=== PATIENT | female | born 1935 | race Caucasian/White ===

== ENCOUNTER → 2016-09-16 | Day surgery (SDC) | payer MEDICARE ==
[~2016-09-16] MED LIST: 1-ME1LIQ PO; ALBU1AER INH; ASPI81 PO; BENA20 PO; CALCTAB70 PO; CRAN500C2 PO; FENO1TAB76 PO; FIORIC PO; LACTATED RINGER'S 1000 ML INJ 1,000 ML ONE; LASI20TA PO; LEVA500T PO; LIPI40TA PO; LOPR50TA12 PO; LORTA5 PO; METR-1 PO; ONDA1TAB16 PO; PRIL20CA PO; PROPOFOL 500 MG/50 ML BTL IV ONE; SYNT125T PO; UMEC1INH INH; Z.0.OXYGENDME NC
--- NOTE | 2016-09-16 10:08 | GIPROC ---
[facility] [address] [address], [address] COLONOSCOPY PROCEDURE REPORT EXAM DATE: 09/16/2016 PATIENT NAME: Sylvia Momin MR #: [id number] BIRTHDATE: 1935 ENDOSCOPIST: Sahara Donahue MD ORDER #: [id number] TELEVISION SERVICER: Steffanie Kennedy RN STATUS: outpatient INDICATIONS: The patient is a 81 yr old female here for a colonoscopy due to high risk patient with personal history of colonic polyps PROCEDURE PERFORMED: Colonoscopy with polypectomy MEDICATIONS: None and Per Anesthesia. PREP QUALITY: good ESTIMATED BLOOD LOSS: None CONSENT: The patient understands the risks and benefits of the procedure and understands that these risks include, but are not limited to: sedation, allergic reaction, infection, perforation and/or bleeding. Alternative means of evaluation and treatment include, among others: physical exam, x-rays, and/or surgical intervention. The patient elects to proceed with this endoscopic procedure. medical equipment was checked for proper function. Hand hygiene and appropriate measures for infection prevention was taken. After the risks, benefits and alternatives of the procedure were thoroughly explained, Informed consent was verified, confirmed and timeout was successfully executed by the treatment team. A digital exam revealed no abnormalities of the rectum The [id number] ([id number]) endoscope was introduced through the anus and advanced to the surgical anastomosis. The instrument was then slowly withdrawn as the colon was fully examined. COLON FINDINGS: 2 small polyp 5 mm each in the transverse colon removed by snare. 1 flat 8 mm poylp in the transverse colon removed by snare. Moderate diverticulosis was noted in the sigmoid colon. The colon mucosa was otherwise normal. Retroflexed views revealed no abnormalities The scope was then completely withdrawn from the patient and the procedure terminated. ADVERSE EVENTS: There were no complications. IMPRESSIONS: 1. 2 small polyp 5 mm each in the transverse colon removed by snare 2. 1 flat 8 mm poylp in the transverse colon removed by snare 3. Moderate diverticulosis was noted in the sigmoid colon 4. The colon mucosa was otherwise normal 5. Retroflexed views revealed no abnormalities 6. Revealed no abnormalities of the rectum RECOMMENDATIONS: 1. Await biopsy results. Biopsy results will not be ready for 7-10 days. If you don't hear from us in two weeks, call our office for results. 2. Yearly hemoccult 3. High fiber diet RECALL: Return 2 years Colonoscopy Sahara Donahue MD eSigned: Sahara Donahue MD 09/16/2016 10:08 AM cc: Brock West M.D. PATIENT NAME: Liliane Sylvia Suzy MR#: [id number]
== END | disposition home or self-care (01) ==
LOC: ESDC 08:11
PROVIDERS: ATTEND Hospitalist
DX: Z12.11 Encounter for screening for malignant neoplasm of colon (principal); Z86.010 Personal history of colon polyps; D12.3 Benign neoplasm of transverse colon; K57.90 Diverticulosis of intestine, part unspecified, without perforation or abscess without bleeding
CPT/HCPCS: 00810; 45385; 88305; J7120

== ENCOUNTER 2016-12-07 13:22 | Emergency (ER) | payer MEDICARE ==
[~2016-12-07] VITALS: Ht 157.5 cm; Wt 82.1 kg
[~2016-12-07 13:22] MED LIST changes: -LACTATED RINGER'S 1000 ML INJ 1,000 ML ONE; -PROPOFOL 500 MG/50 ML BTL IV ONE
[2016-12-07 13:31] VITALS: BP 170/77; PULSE 99; RESP 18; TEMP 97.8; O2SAT 97
[2016-12-07] MEDS ORDERED: ATOR40TA16 PO (13:52)
[2016-12-07] MEDS ORDERED: BUTA1CAP PO (13:52)
[2016-12-07] MEDS ORDERED: CHOL1CAP PO (13:52)
[2016-12-07] MEDS ORDERED: BENA20TA PO (13:52)
[2016-12-07] MEDS ORDERED: PANT40TA3 PO (13:52)
[2016-12-07] MEDS ORDERED: HYDR-3800 PO (13:52)
[2016-12-07] MEDS ORDERED: SYSTSOL EACH EYE (13:52)
[2016-12-07] MEDS ORDERED: METO50TA PO (13:52)
[2016-12-07] MEDS ORDERED: CALCTAB19 PO (13:52)
[2016-12-07] MEDS ORDERED: FURO20TA PO (13:52)
[2016-12-07] MEDS ORDERED: ALPR0.25 PO (13:52)
[2016-12-07] MEDS ORDERED: CRANCAP2 PO (13:52)
[2016-12-07] MEDS ORDERED: ASPI81CH37 CHEW (13:52)
[2016-12-07] MEDS ORDERED: LEVO.125 PO (13:52)
[2016-12-07] MEDS ORDERED: VENTAER INH (13:52)
[2016-12-07] MEDS ORDERED: TYLE325T PO (13:52)
--- NOTE | 2016-12-07 13:53 | PD ---
HPI Chief Complaint: Hypertension Time Seen by Provider: 13:37 Travel History International Travel<30 days: No Contact w/Intl Traveler<30days: No Traveled to known affect area: No History of Present Illness HPI This 81-year-old female complaining of high blood pressure. She has a long history of hypertension which has been refractory to treatment. He is currently on metoprolol 50 twice a day and benazepril 20 mg twice a day. She went to see Dr. Bonilla last Friday in her blood pressure was elevated. He started on hydralazine 50 mg 3 times a day. Since she's taken that her blood pressure has been quite erratic. She says that this morning it was low and at times it is high. She was 80/50 this morning and was feeling a bit lightheaded. She does have multiple medical issues. She has a history of COPD and is on continuous home oxygen. He has a history of lung cancer that is under control at this time she does take Lasix PFSH Past Medical History Hx Anticoagulant Therapy: Yes (asa 81mg) Arthritis: Yes Asthma: No Anxiety: Yes Cancer: Yes (RIGHT LUNG) Cardiovascular Problems: Yes High Cholesterol: Yes (hyperlipedemis sinus stefano) COPD: Yes Diabetes: No Diminished Hearing: No Endocrine: Yes Gastrointestinal Disorders: Yes (REFLUX, GI BLEEDING) GERD: Yes Genitourinary: Yes (FREQUENCY, INCONTINENCE) Hepatitis: No Hiatal Hernia: No Hypertension: Yes Immune Disorder: No Implanted Vascular Access Dvce: Yes Musculoskeletal: Yes (hx of multiple neck and back surgeries) Neurologic: Yes (TENSION HEADACHES) Psychiatric: Yes (ANXIETY) Reproductive: No Respiratory: Yes Sleep Apnea: Yes (UNDIAGNOSED) Thyroid Disease: Yes (HYPOTHYROIDISM) Influenza Vaccination: No ?: Not Past Surgical History Abdominal Surgery: Yes (appendectomy, PARTIAL COLON REMOVAL) AICD: No Appendectomy: Yes Body Medical Devices: RODS LOWER BACK Cholecystectomy: Yes Ear Surgery: No Endocrine Surgery: No Eye Surgery: Yes (bethany eye cataract removal) Gynecologic Surgery: Yes (hysterectomy) Hysterectomy: Yes Joint Replacement: Yes (RIGHT TOTAL KNEE) Oral Surgery: No Pacemaker: No Thoracic Surgery: Yes (right upper lobectomy) Other Surgery: Yes (RIGHT SHOULDER REBUILT) Social History Alcohol Use: No Tobacco Use: No Substance Use: No Allergies-Medications (Allergen,Severity, Reaction): Coded Allergies: Influenza Virus Vaccines (Unverified Allergy, Severe, ANAPHLAXIS, 12/07/16) SHOCK acetaminophen (Unverified Allergy, Severe, headache, 12/07/16) diazepam (Unverified Allergy, Severe, NAUSEA/VOMITING, 12/07/16) HEADACHES hydrocodone (Unverified Allergy, Severe, headache, 12/07/16) meperidine (Unverified Allergy, Severe, VOMITING, 12/07/16) morphine (Unverified Allergy, Severe, Anaphylaxis, 12/07/16) budesonide (Unverified Adverse Reaction, Intermediate, Pt states having having trouble with throat closing after tx, 12/07/16) Gave 25mg benedryl iv and continued to monitor pt clonidine (Unverified Adverse Reaction, Unknown, Dizziness, 12/07/16) Reported Meds & Prescriptions Reported Meds & Active Scripts Active Reported Ventolin Hfa 18 GM Inh (Albuterol Sulfate) 90 Mcg/Act Aer 2 Puff INH Q4H PRN Tylenol (Acetaminophen) 325 Mg Tab 650 Mg PO Q6H PRN Systane Opth Drops (Polyethylene Glycol-Propylene Glycol Opth Drp) 0.4-0.3% Soln 1-2 Drop EACH EYE PRN PRN Synthroid (Levothyroxine Sodium) 125 Mcg Tab 125 Mcg PO DAILY Pantoprazole (Pantoprazole Sodium) 40 Mg Tab 40 Mg PO DAILY Metoprolol Tartrate 50 Mg Tab 50 Mg PO BID Furosemide 20 Mg Tab 20 Mg PO BID Fioricet (Tyuxlsfmgb-Bnzgszrncdvaa-Vnioreup) 50-300-40 Mg Cap 2 Cap PO Q4H PRN Fenofibric Acid Dr (Choline Fenofibrate DR) 45 mg Capdr 45 Mg PO DAILY Cranberry Urinary Comfort (Vitamins C & E) 1 Cap 500 Cap PO DAILY Calcium 600+D 200 (Calcium Carbonate-Vitamin D) 600-200 Mg-Unit Tab 1 Tab PO BID Benazepril (Benazepril HCl) 20 Mg Tab 20 Mg PO BID Atorvastatin (Atorvastatin Calcium) 40 Mg Tab 40 Mg PO HS Aspirin Low Dose (Aspirin) 81 Mg Chew 81 Mg CHEW DAILY Alprazolam 0.25 Mg Tab 0.25 Mg PO DAILY NEB PRN Hydralazine HCl 50 Mg Tablet 50 Mg PO TID Review of Systems General / Constitutional: No: Fever Eyes: No: Diploplia, Blurred Vision HENT: Positive: Headaches Cardiovascular: No: Chest Pain or Discomfort, Palpitations Respiratory: Positive: Cough, Shortness of Breath Gastrointestinal: No: Nausea, Vomiting Genitourinary: No: Urgency, Frequency Musculoskeletal: No: Myalgias, Arthralgias Skin: No Rash, No Itching Hematologic/Lymphatic: No: Easy Bruising Physical Exam Narrative GENERAL: Chronically ill female on supplemental oxygen SKIN: Focused skin assessment warm/dry. HEAD: Atraumatic. Normocephalic. EYES: Pupils equal and round. No scleral icterus. No injection or drainage. ENT: No nasal bleeding or discharge. Mucous membranes pink and moist. NECK: Trachea midline. No JVD. CARDIOVASCULAR: Regular rate and rhythm. No murmur appreciated. RESPIRATORY: No accessory muscle use. Scattered rhonchi bilaterally. Breath sounds equal bilaterally. GASTROINTESTINAL: Abdomen soft, non-tender, nondistended. Hepatic and splenic margins not palpable. MUSCULOSKELETAL: No obvious deformities. No clubbing. No cyanosis. Trace edema. NEUROLOGICAL: Awake and alert. No obvious cranial nerve deficits. Motor grossly within normal limits. Normal speech. PSYCHIATRIC: Appropriate mood and affect; insight and judgment normal. Data Data Last Documented VS Vital Signs Date Time Temp Pulse Resp B/P (MAP) Pulse Ox O2 Delivery O2 Flow Rate FiO2 12/07/16 14:53 160/85 (110) 12/07/16 13:42 98 Room Air 2.00 12/07/16 13:31 97.8 99 18 Orders Orders Complete Blood Count With Diff (12/07/16 13:48) Basic Metabolic Panel (Bmp) (12/07/16 13:48) Labs Laboratory Tests Test 12/07/16 14:00 White Blood Count 11.5 TH/MM3 Red Blood Count 4.99 MIL/MM3 Hemoglobin 14.8 GM/DL Hematocrit 45.1 % Mean Corpuscular Volume 90.4 FL Mean Corpuscular Hemoglobin 29.6 PG Mean Corpuscular Hemoglobin Concent 32.7 % Red Cell Distribution Width 15.0 % Platelet Count 319 TH/MM3 Mean Platelet Volume 8.6 FL Neutrophils (%) (Auto) 74.1 % Lymphocytes (%) (Auto) 16.7 % Monocytes (%) (Auto) 5.0 % Eosinophils (%) (Auto) 1.4 % Basophils (%) (Auto) 2.8 % Neutrophils # (Auto) 8.5 TH/MM3 Lymphocytes # (Auto) 1.9 TH/MM3 Monocytes # (Auto) 0.6 TH/MM3 Eosinophils # (Auto) 0.2 TH/MM3 Basophils # (Auto) 0.3 TH/MM3 CBC Comment DIFF FINAL Differential Comment Blood Urea Nitrogen 27 MG/DL Creatinine 0.81 MG/DL Random Glucose 106 MG/DL Calcium Level 9.2 MG/DL Sodium Level 138 MEQ/L Potassium Level 4.0 MEQ/L Chloride Level 100 MEQ/L Carbon Dioxide Level 30.8 MEQ/L Anion Gap 7 MEQ/L Estimat Glomerular Filtration Rate 68 ML/MIN MDM Medical Decision Making Medical Screen Exam Complete: Yes Emergency Medical Condition: Yes Medical Record Reviewed: Yes Differential Diagnosis Differential includes hypertension, electrolyte imbalance Narrative Course Blood work was checked and is going. The patient had a low blood pressure this morning after the hydralazine and I will cut her dose back from 50-25. She does tend to go up and I'm been no change her from 50 3 times daily to 25 4 times daily Diagnosis Primary Impression: Hypertension Scripts Hydralazine HCl (Hydralazine HCl) 25 Mg Tablet 25 MG PO QID for Blood Pressure Management for 30 Days, #120 TAB 0 Refills Prov: Valeriy Mejia MD 12/07/16 Disposition: 01 DISCHARGE HOME Condition: Stable Valeriy Mejia MD Dec 07, 2016 13:53
[2016-12-07 14:09] LABS: AUTOMATED NEUTROPHIL # 8.5 TH/MM3 (1.8-7.7); BASOPHIL # 0.3 TH/MM3 (0-0.2); BASOPHIL % 2.8 % (0.0-2.0); EOSINOPHIL # 0.2 TH/MM3 (0-0.4); EOSINOPHIL % 1.4 % (0.0-4.0); HEMATOCRIT 45.1 % (35.0-46.0); HEMO FLAGS DIFF FINAL; LYMPH % 16.7 % (9.0-44.0); LYMPHOCYTE # 1.9 TH/MM3 (1.0-4.8); MEAN CELL VOLUME 90.4 FL (80.0-100.0); MEAN CORPUSCULAR HEMOGLOBIN 29.6 PG (27.0-34.0); MEAN CORPUSCULAR HGB CONC 32.7 % (32.0-36.0); NEUT % 74.1 % (16.0-70.0); PLATELET COUNT 319 TH/MM3 (150-450); RED BLOOD COUNT 4.99 MIL/MM3 (4.00-5.30); WHITE BLOOD COUNT 11.5 TH/MM3 (4.0-11.0)
[2016-12-07 14:20] LABS: BICARBONATE 30.8 MEQ/L (21.0-32.0)
[2016-12-07 14:53] VITALS: BP 160/85
[2016-12-07] MEDS ORDERED: HYDR-3799 PO (15:12)
== END 2016-12-07 15:20 | disposition home or self-care (01) ==
LOC: PHED 13:22
DX: I10 Essential (primary) hypertension (principal); J44.9 Chronic obstructive pulmonary disease, unspecified; E78.00 Pure hypercholesterolemia, unspecified; E03.9 Hypothyroidism, unspecified; K21.9 Gastro-esophageal reflux disease without esophagitis; Z79.82 Long term (current) use of aspirin; Z99.81 Dependence on supplemental oxygen
CPT/HCPCS: 80048; 85025; 99283

== ENCOUNTER 2016-12-11 15:52 | Emergency (ER) | payer MEDICARE ==
[~2016-12-11] VITALS: Ht 162.6 cm; Wt 80.0 kg
[~2016-12-11 15:52] MED LIST changes: -1-ME1LIQ PO; -ALBU1AER INH; +ALPR0.25 PO; -ASPI81 PO; +ASPI81CH37 CHEW; +ATOR40TA16 PO; -BENA20 PO; +BENA20TA PO; +BUTA1CAP PO; +CALCTAB19 PO; -CALCTAB70 PO; +CHOL1CAP PO; -CRAN500C2 PO; +CRANCAP2 PO; -FENO1TAB76 PO; -FIORIC PO; +FURO20TA PO; +HYDR-3799 PO; +HYDR-3800 PO; -LASI20TA PO; -LEVA500T PO; +LEVO.125 PO; -LIPI40TA PO; -LOPR50TA12 PO; -LORTA5 PO; +METO50TA PO; -METR-1 PO; -ONDA1TAB16 PO; +PANT40TA3 PO; -PRIL20CA PO; -SYNT125T PO; +SYSTSOL EACH EYE; +TYLE325T PO; -UMEC1INH INH; +VENTAER INH; -Z.0.OXYGENDME NC
[2016-12-11 16:04] VITALS: BP 221/90; PULSE 90; RESP 22; TEMP 98.3; O2SAT 97
[2016-12-11 16:20] VITALS: BP 195/88; PULSE 92; RESP 16; O2SAT 98
[2016-12-11] MEDS ORDERED: FAMOTIDINE 20 MG TAB PO ONE (16:30)
[2016-12-11] MEDS ORDERED: UMEC1INH INH (16:31)
[2016-12-11] MEDS ORDERED: MIRA3350 PO (16:32)
[2016-12-11 17:04] VITALS: BP 199/130; PULSE 100; RESP 18; TEMP 98; O2SAT 98
--- NOTE | 2016-12-11 17:13 | PD ---
HPI Chief Complaint: Allergic/Adverse Reaction Time Seen by Provider: 16:23 Travel History International Travel<30 days: No Contact w/Intl Traveler<30days: No Traveled to known affect area: No History of Present Illness HPI Patient comes in complaining of allergic reaction that occurred shortly prior to arrival. Patient reports approximately about an hour after taking a dose of Lexapro she began feeling her throat was closing she's having difficulty breathing and felt very pruritic all over. Patient received 125 Solu-Medrol and 50 mg of Benadryl IV by EMS that alleviated her symptoms. Patient denies any other known new allergen exposures. States she's never take Lexapro prior to today. Patient denies any symptoms currently. Denies any chest pain, shortness of breath, fevers, headache,numbness or tingling anywhere, abdominal pain, or pruritus currently. PFSH Past Medical History Hx Anticoagulant Therapy: Yes (asa 81mg) Arthritis: Yes Asthma: No Anxiety: Yes Cancer: Yes (RIGHT LUNG) Cardiovascular Problems: Yes High Cholesterol: Yes (hyperlipedemis sinus stefano) COPD: Yes Diabetes: No Diminished Hearing: No Endocrine: Yes Gastrointestinal Disorders: Yes (REFLUX, GI BLEEDING) GERD: Yes Genitourinary: Yes (FREQUENCY, INCONTINENCE) Hepatitis: No Hiatal Hernia: No Hypertension: Yes Immune Disorder: No Implanted Vascular Access Dvce: Yes Musculoskeletal: Yes (hx of multiple neck and back surgeries) Neurologic: Yes (TENSION HEADACHES) Psychiatric: Yes (ANXIETY) Reproductive: No Respiratory: Yes Sleep Apnea: Yes (UNDIAGNOSED) Thyroid Disease: Yes (HYPOTHYROIDISM) Tetanus Vaccination: Never Vaccinated ?: Not Past Surgical History Abdominal Surgery: Yes (appendectomy, PARTIAL COLON REMOVAL) AICD: No Appendectomy: Yes Body Medical Devices: RODS LOWER BACK Cholecystectomy: Yes Ear Surgery: No Endocrine Surgery: No Eye Surgery: Yes (bethany eye cataract removal) Gynecologic Surgery: Yes (hysterectomy) Hysterectomy: Yes Joint Replacement: Yes (RIGHT TOTAL KNEE) Oral Surgery: No Pacemaker: No Thoracic Surgery: Yes (right upper lobectomy) Other Surgery: Yes (RIGHT SHOULDER REBUILT) Social History Alcohol Use: No Tobacco Use: No Substance Use: No Allergies-Medications (Allergen,Severity, Reaction): Coded Allergies: Influenza Virus Vaccines (Verified Allergy, Severe, ANAPHLAXIS, 12/11/16) SHOCK acetaminophen (Verified Allergy, Severe, headache, 12/11/16) amlodipine (Verified Allergy, Severe, Anaphylaxis, 12/11/16) codeine (Verified Allergy, Severe, Shortness of Breath, 12/11/16) diazepam (Verified Allergy, Severe, NAUSEA/VOMITING, 12/11/16) HEADACHES escitalopram (Verified Allergy, Severe, Anaphylaxis, 12/11/16) hydrocodone (Verified Allergy, Severe, headache, 12/11/16) meperidine (Verified Allergy, Severe, VOMITING, 12/11/16) morphine (Verified Allergy, Severe, Anaphylaxis, 12/11/16) gabapentin (Verified Allergy, Intermediate, Shortness of Breath, 12/11/16) budesonide (Verified Adverse Reaction, Intermediate, Pt states having having trouble with throat closing after tx, 12/11/16) Gave 25mg benedryl iv and continued to monitor pt clonidine (Verified Adverse Reaction, Unknown, Dizziness, 12/11/16) Reported Meds & Prescriptions Reported Meds & Active Scripts Active Pepcid (Famotidine) 20 Mg Tab 10 Mg PO BID 5 Days Prednisone 20 Mg Tab 20 Mg PO BID 3 Days Reported Miralax Powder (Polyethylene Glycol 3350 Powder) 17 Gm Powd 17 Gm PO DAILY Mix and dissolve one measuring cap-ful (17 grams) in water or juice. Incruse Ellipta Inh (Umeclidinium Peculiar Inh) 0.0625 Mg/Act Inh 62.5 Mcg INH DAILY Ventolin Hfa 18 GM Inh (Albuterol Sulfate) 90 Mcg/Act Aer 2 Puff INH Q4H PRN Tylenol (Acetaminophen) 325 Mg Tab 650 Mg PO Q6H PRN Systane Opth Drops (Polyethylene Glycol-Propylene Glycol Opth Drp) 0.4-0.3% Soln 1-2 Drop EACH EYE PRN PRN Synthroid (Levothyroxine Sodium) 125 Mcg Tab 125 Mcg PO DAILY Pantoprazole (Pantoprazole Sodium) 40 Mg Tab 40 Mg PO DAILY Metoprolol Tartrate 50 Mg Tab 50 Mg PO BID Furosemide 20 Mg Tab 20 Mg PO BID Fioricet (Dqzmwtkofd-Gjpmsbnpjsdbl-Jzraltxa) 50-300-40 Mg Cap 2 Cap PO Q4H PRN Fenofibric Acid Dr (Choline Fenofibrate DR) 45 mg Capdr 45 Mg PO DAILY Cranberry Urinary Comfort (Vitamins C & E) 1 Cap 500 Cap PO DAILY Calcium 600+D 200 (Calcium Carbonate-Vitamin D) 600-200 Mg-Unit Tab 1 Tab PO BID Benazepril (Benazepril HCl) 20 Mg Tab 20 Mg PO BID Atorvastatin (Atorvastatin Calcium) 40 Mg Tab 40 Mg PO HS Aspirin Low Dose (Aspirin) 81 Mg Chew 81 Mg CHEW DAILY Review of Systems Except as stated in HPI: all other systems reviewed are Neg Physical Exam Narrative GENERAL: Well-developed, overly nourished, in no acute distress, and non-ill appearing. SKIN: Focused skin assessment warm and dry. No hives or urticaria noted. No rashes noted. HEAD: Atraumatic. Normocephalic. EYES: Pupils equal and round. EOMI. No scleral icterus. No injection or drainage. ENT: No nasal bleeding or discharge. Mucous membranes pink and moist. No angioedema noted lips or tongue. NECK: Trachea midline. No stridor. Supple. No nuclear rigidity. CARDIOVASCULAR: Regular rate and rhythm. No murmur appreciated. RESPIRATORY: No accessory muscle use. No respiratory distress. Clear to auscultation. Breath sounds equal bilaterally. Patient speaking in full sentences easily. There is no stridor. MUSCULOSKELETAL: No obvious deformities. No clubbing. No cyanosis. No edema. Full range of motion. NEUROLOGICAL: Awake and alert. No obvious cranial nerve deficits. Motor grossly within normal limits. Normal speech. PSYCHIATRIC: Appropriate mood and affect; insight and judgment normal. Data Data Last Documented VS Vital Signs Date Time Temp Pulse Resp B/P (MAP) Pulse Ox O2 Delivery O2 Flow Rate FiO2 12/11/16 20:02 12/11/16 18:31 104 18 97 Nasal Cannula 2.00 12/11/16 17:04 98.0 Orders Orders Famotidine (Pepcid) (12/11/16 16:30) Ed Discharge Order (12/11/16 18:45) [facility] Medical Decision Making Medical Screen Exam Complete: Yes Emergency Medical Condition: Yes Differential Diagnosis Allergic reaction, angioedema, uncontrolled hypertension, other Narrative Course Patient did have elevated blood pressure upon arrival. This was rechecked manually found to be 170/92 at discharge. Patient reports that they have been having difficulty getting her blood pressure controlled as an outpatient. Appears allergic reaction. There is no airway involvement nor difficulty swallowing. Patient looks great. The patient is tolerating fluids. The patient looks great, the findings are minimal and due to nonprogression of symptoms here the patient is safe to discharge home. The patient feels comfortable with plan and will return immediately if symptoms begin to worsen. The rash is not consistent with erythema multiforme at this time. The patient is to continue histamine 1 and 2 blockade as well as steroids. The patient was instructed to avoid potential precipitating factor and to follow up with their regular physician and or follow up with exercise equipment specialist for definitive allergy testing. The patient agrees with plan. The patient has a prior history of hypertension and states has been taking their antihypertensive medications. The patient has no symptoms as well. The patient denied headache, changes in vision, nausea, vomiting, dizziness, weakness or loss of sensation. The patient denied and chest, back or abdominal pain. The patient also denied any shortness of breath, dyspnea on exertion, orthopnea or PND. The patient denies any edema to extremities. The patients blood pressures at discharge were at an acceptable level. I discussed with the patient that the standard of care is to not adjust antihypertensive medications at this time and for them to follow up with a primary care physician for continued outpatient evaluation and potential adjustment of blood pressure medication at that time. Return warnings were given to the patient and the patient agreed with plan of care. Patient in no obvious distress upon re-evaluation. Discussed patient with Dr. Cullen prior to discharge, who is in agreement with plan of care and disposition. Patient was asked if they wanted to speak to my attending, which the patient did not wish to do at this time. Any questions/concerns in reference to patient diagnosis/condition discussed and clarified prior to patient's discharge. Reinforced sheer importance of close follow up with patient 's primary physician or primary care clinic. Instructed patient to return to ED immediately, if symptoms return/worsen. Patient showed understanding of above instructions. Further instructions and recommendations were detailed in discharge paperwork. Patient ambulated without difficulty out of ED at discharge. Diagnosis Primary Impression: Allergic reaction caused by a drug Qualified Codes: T78.40XA - Allergy, unspecified, initial encounter Additional Impression: Hypertension Qualified Codes: I10 - Essential (primary) hypertension Patient Instructions: Chronic Hypertension (ED), General Allergic Reaction (ED) , General Instructions Additional Instructions: Follow-up with your primary care physician next week for reevaluation and possible adjustment of your blood pressure medicine. Take all medication as prescribed. Use [id number] Claritin or Benadryl or Zyrtec as needed for symptomatically relief. Follow instructions on the packaging. Stop taking Lexapro. Return to the emergency department if symptoms get worse. Scripts Famotidine (Pepcid) 20 Mg Tab 10 MG PO BID for 5 Days, #5 TAB 0 Refills Prov: Dion Cullen MD 12/11/16 Prednisone (Prednisone) 20 Mg Tab 20 MG PO BID for 3 Days, #6 TAB 0 Refills Prov: Dion Cullen MD 12/11/16 Disposition: 01 DISCHARGE HOME Condition: Stable Anderson Carter Dec 11, 2016 17:13
[2016-12-11 18:31] VITALS: BP 170/92; PULSE 104; RESP 18; O2SAT 97
[2016-12-11] MEDS ORDERED: PRED20 PO (18:41)
[2016-12-11] MEDS ORDERED: FAMO1TAB37 PO (18:41)
== END 2016-12-11 20:03 | disposition home or self-care (01) ==
LOC: NEPE 15:52
DX: T78.40XA Allergy, unspecified, initial encounter (principal); I10 Essential (primary) hypertension; J44.9 Chronic obstructive pulmonary disease, unspecified; K21.9 Gastro-esophageal reflux disease without esophagitis; E03.9 Hypothyroidism, unspecified; X58.XXXA Exposure to other specified factors, initial encounter
CPT/HCPCS: 99284

== ENCOUNTER 2016-12-14 18:57 | Emergency (ER) | payer MEDICARE ==
[~2016-12-14] VITALS: Ht 162.6 cm; Wt 82.0 kg
[~2016-12-14 18:57] MED LIST changes: -ALPR0.25 PO; +FAMO1TAB37 PO; -HYDR-3799 PO; -HYDR-3800 PO; +MIRA3350 PO; +PRED20 PO; +UMEC1INH INH
[2016-12-14 19:13] VITALS: BP 171/87; PULSE 100; RESP 18; TEMP 97.9; O2SAT 95
--- NOTE | 2016-12-14 21:46 | PD ---
HPI Chief Complaint: Hypertension Time Seen by Provider: 21:38 Travel History International Travel<30 days: No Contact w/Intl Traveler<30days: No Traveled to known affect area: No History of Present Illness HPI The patient is an 81-year-old female who has had nausea, vomiting and diarrhea today. She also became for hypertension but they have been trying to adjust her blood pressure for a long time. Unfortunately, the patient is allergic to hydralazine, clonidine, lisinopril and multiple other medications. At this time she does not have a headache and denies any focal neurologic change. She is nauseated. She has had a cholecystectomy, appendectomy and hysterectomy as well as a partial colectomy. The colectomy was done for multiple polyps. Dr. West is her primary care physician and he has been trying to adjust her blood pressure medication. She states she has had dysuria for 5 days. PFSH Past Medical History Hx Anticoagulant Therapy: Yes (aspirin) Arthritis: Yes Asthma: No Anxiety: Yes Cancer: Yes (RIGHT LUNG) High Cholesterol: Yes (hyperlipedemis sinus stefano) COPD: Yes Diabetes: No Diminished Hearing: No Endocrine: Yes Gastrointestinal Disorders: Yes (REFLUX, GI BLEEDING) GERD: Yes Genitourinary: Yes (FREQUENCY, INCONTINENCE) Hepatitis: No Hiatal Hernia: No Hypertension: Yes Immune Disorder: No Implanted Vascular Access Dvce: Yes Musculoskeletal: Yes (hx of multiple neck and back surgeries) Neurologic: Yes (TENSION HEADACHES) Psychiatric: Yes (ANXIETY) Reproductive: No Respiratory: Yes (HX of lung CA) Sleep Apnea: Yes (UNDIAGNOSED) Thyroid Disease: Yes (HYPOTHYROIDISM) Past Surgical History Abdominal Surgery: Yes (appendectomy, PARTIAL COLON REMOVAL) AICD: No Appendectomy: Yes Body Medical Devices: RODS LOWER BACK Cholecystectomy: Yes Ear Surgery: No Endocrine Surgery: No Eye Surgery: Yes (bethany eye cataract removal) Gynecologic Surgery: Yes (hysterectomy) Hysterectomy: Yes Joint Replacement: Yes (RIGHT TOTAL KNEE) Oral Surgery: No Pacemaker: No Thoracic Surgery: Yes (right upper lobectomy) Other Surgery: Yes (RIGHT SHOULDER REBUILT) Social History Alcohol Use: No Tobacco Use: No Substance Use: No Allergies-Medications (Allergen,Severity, Reaction): Coded Allergies: Influenza Virus Vaccines (Verified Allergy, Severe, ANAPHLAXIS, 12/14/16) SHOCK acetaminophen (Verified Allergy, Severe, headache, 12/14/16) amlodipine (Verified Allergy, Severe, Anaphylaxis, 12/14/16) codeine (Verified Allergy, Severe, Shortness of Breath, 12/14/16) diazepam (Verified Allergy, Severe, NAUSEA/VOMITING, 12/14/16) HEADACHES escitalopram (Verified Allergy, Severe, Anaphylaxis, 12/14/16) hydrocodone (Verified Allergy, Severe, headache, 12/14/16) meperidine (Verified Allergy, Severe, VOMITING, 12/14/16) morphine (Verified Allergy, Severe, Anaphylaxis, 12/14/16) gabapentin (Verified Allergy, Intermediate, Shortness of Breath, 12/14/16) budesonide (Verified Adverse Reaction, Intermediate, Pt states having having trouble with throat closing after tx, 12/14/16) Gave 25mg benedryl iv and continued to monitor pt clonidine (Verified Adverse Reaction, Unknown, Dizziness, 12/14/16) Reported Meds & Prescriptions Reported Meds & Active Scripts Active Reported Miralax Powder (Polyethylene Glycol 3350 Powder) 17 Gm Powd 17 Gm PO DAILY Mix and dissolve one measuring cap-ful (17 grams) in water or juice. Incruse Ellipta Inh (Umeclidinium [place] Inh) 0.0625 Mg/Act Inh 62.5 Mcg INH DAILY Ventolin Hfa 18 GM Inh (Albuterol Sulfate) 90 Mcg/Act Aer 2 Puff INH Q4H PRN Tylenol (Acetaminophen) 325 Mg Tab 650 Mg PO Q6H PRN Systane Opth Drops (Polyethylene Glycol-Propylene Glycol Opth Drp) 0.4-0.3% Soln 1-2 Drop EACH EYE PRN PRN Synthroid (Levothyroxine Sodium) 125 Mcg Tab 125 Mcg PO DAILY Pantoprazole (Pantoprazole Sodium) 40 Mg Tab 40 Mg PO DAILY Metoprolol Tartrate 50 Mg Tab 50 Mg PO BID Furosemide 20 Mg Tab 20 Mg PO BID Fioricet (Asaufdzkzt-Ypnrgjwarnuwh-Iadgyuxu) 50-300-40 Mg Cap 2 Cap PO Q4H PRN Fenofibric Acid Dr (Choline Fenofibrate DR) 45 mg Capdr 45 Mg PO DAILY Cranberry Urinary Comfort (Vitamins C & E) 1 Cap 500 Cap PO DAILY Calcium 600+D 200 (Calcium Carbonate-Vitamin D) 600-200 Mg-Unit Tab 1 Tab PO BID Benazepril (Benazepril HCl) 20 Mg Tab 20 Mg PO BID Atorvastatin (Atorvastatin Calcium) 40 Mg Tab 40 Mg PO HS Aspirin Low Dose (Aspirin) 81 Mg Chew 81 Mg CHEW DAILY Review of Systems Except as stated in HPI: all other systems reviewed are Neg Physical Exam Narrative GENERAL: The patient is alert, oriented 3 in minimal apparent distress with her abdominal discomfort. Her vital signs show blood pressure 171/87 with a heart rate of 100 but otherwise normal. She appears minimally dehydrated. SKIN: Focused skin assessment warm/dry. HEAD: Atraumatic. Normocephalic. EYES: Pupils equal and round. No scleral icterus. No injection or drainage. ENT: No nasal bleeding or discharge. Mucous membranes pink and moist. NECK: Trachea midline. No JVD. CARDIOVASCULAR: Regular rate and rhythm. No murmur appreciated. RESPIRATORY: No accessory muscle use. Clear to auscultation. Breath sounds equal bilaterally. GASTROINTESTINAL: Abdomen soft, non-tender, nondistended. Hepatic and splenic margins not palpable. MUSCULOSKELETAL: No obvious deformities. No clubbing. No cyanosis. No edema. NEUROLOGICAL: Awake and alert. No obvious cranial nerve deficits. Motor grossly within normal limits. Normal speech. PSYCHIATRIC: Appropriate mood and affect; insight and judgment normal. Data Data Last Documented VS Vital Signs Date Time Temp Pulse Resp B/P (MAP) Pulse Ox O2 Delivery O2 Flow Rate FiO2 12/14/16 21:54 90 18 177/88 (117) 98 Nasal Cannula 2.00 12/14/16 19:13 97.9 Orders Orders Sodium Chlor 0.9% 1000 Ml Inj (Ns 1000 M (12/14/16 22:00) Ondansetron Inj (Zofran Inj) (12/14/16 22:00) Urinalysis - C+S If Indicated (12/14/16 21:56) Labs Laboratory Tests Test 12/14/16 22:00 Urine Collection Type VOIDED Urine Color YELLOW Urine Turbidity CLEAR Urine pH 5.5 Urine Specific [place] 1.010 Urine Protein NEG mg/dL Urine Glucose (UA) NEG mg/dL Urine Ketones NEG mg/dL Urine Occult Blood NEG Urine Nitrite NEG Urine Bilirubin NEG Urine Leukocyte Esterase NEG Urine WBC 0-2 /hpf Urine Squamous Epithelial Cells 0-3 /hpf Urine Transitional Epithelial Cells 0-1 /hpf Microscopic Urinalysis Comment CULT NOT INDICATED MDM Medical Decision Making Medical Screen Exam Complete: Yes Emergency Medical Condition: Yes Medical Record Reviewed: Yes Differential Diagnosis Hypertensive urgency, asymptomatic hypertension, viral gastritis, colitis, dehydration Narrative Course The patient's dehydration appears minimal. Her blood pressure after walking around is 187/89. She did not like lying down. Her nausea has subsided with Zofran. We will not adjust her blood pressure here in the emergency department , it is asymptomatic, she is to go to Dr. West to have her blood pressure regulated. Diagnosis Primary Impression: Viral gastroenteritis Additional Impression: Elevated blood pressure reading Additional Instructions: As we discussed, follow-up with Dr. Haley to have your blood pressure regulated. He is working hard and trying different things to control her blood pressure. It is difficult because you have so many allergies to blood pressure medications. Zofran is one tablet every 6 hours as needed for nausea. Med/Other Pt SpecificInfo: Prescription(s) given Scripts Ondansetron (Zofran) 4 Mg Tab 4 MG PO Q6HR Y for NAUSEA OR VOMITING, #21 TAB 0 Refills Prov: Justin Pop MD 12/14/16 Disposition: 01 DISCHARGE HOME Condition: Stable Justin Pop MD Dec 14, 2016 21:46
[2016-12-14 21:54] VITALS: BP 177/88; PULSE 90; RESP 18; O2SAT 98
[2016-12-14] MEDS ORDERED: SODIUM CHLOR 0.9% 1000 ML INJ 1,000 ML IV SCH (22:00)
[2016-12-14] MEDS ORDERED: ONDANSETRON HCL 4 MG/2 ML VIAL IV ONE (22:00)
[2016-12-14 22:23] LABS: BLOOD, URINE NEG (NEG); GLUCOSE,URINE NEG (NEG); KETONE, URINE NEG (NEG); NITRITE,URINE NEG (NEG); PH, URINE 5.5 (5.0-8.5)
[2016-12-14 22:43] LABS: METHOD OF COLLECTION VOIDED; SQUAMOUS EPITHELIAL CELL URINE 0-3 /hpf (0-5); TRANSITIONAL EPI CELLS, URINE 0-1 /hpf; URINE COLOR YELLOW (YELLW/STRAW); WBC, URINE 0-2 /hpf (0-5)
[2016-12-14 22:44] LABS: COMMENT (UR) CULT NOT INDICATED; CULTURE IF INDICATED CULT NOT INDICATED
[2016-12-14 23:27] VITALS: BP 178/88
[2016-12-14] MEDS ORDERED: ZOFR4TAB PO (23:28)
== END 2016-12-14 23:42 | disposition home or self-care (01) ==
LOC: PHED 18:57
DX: A08.4 Viral intestinal infection, unspecified (principal); I10 Essential (primary) hypertension; Z79.82 Long term (current) use of aspirin
CPT/HCPCS: 81001; 96361; 96374; 99284; J2405; J7030

== ENCOUNTER → 2017-07-08 | Outpatient (CLI) | payer MEDICARE ==
[~2017-07-08] MED LIST changes: -ASPI81CH37 CHEW; -ATOR40TA16 PO; -BENA20TA PO; -BUTA1CAP PO; -CALCTAB19 PO; -CHOL1CAP PO; -CRANCAP2 PO; +DEXTROSE 5%-LACTATED RING INJ 1,000 ML IV; -FAMO1TAB37 PO; -FURO20TA PO; -LEVO.125 PO; +LIDOCAINE HCL 1% PF 5 ML SYRINGE OTHER; -METO50TA PO; +METOPROLOL TARTRATE 25 MG TAB PO; -MIRA3350 PO; -PANT40TA3 PO; -PRED20 PO; +PROPOFOL 200 MG/20 ML AMP IV; +SODIUM CHLORID 0.9% 500 ML IV; -SYSTSOL EACH EYE; -TYLE325T PO; -UMEC1INH INH; -VENTAER INH
[2017-07-08] MEDS: CHLORHEXIDINE GLUCONATE 2 % 1 PACK (2 CLOTHS) TOPICAL (09:03)
[2017-07-08] MEDS: LACTATED RINGER'S 1000 ML IV (09:03)
[2017-07-08] MEDS: POVIDONE IODINE 5% (ANTISEPSIS KIT) 4 APPLICATIONS EACH NARE (09:03)
== END ==
LOC: HEND 07:47
DX: K92.1 Melena (principal); Q27.33 Arteriovenous malformation of digestive system vessel; D50.9 Iron deficiency anemia, unspecified; K20.9 Esophagitis, unspecified; K29.70 Gastritis, unspecified, without bleeding
CPT/HCPCS: 00731; 93005

== ENCOUNTER 2017-12-05 12:54 | Inpatient (IN) ==
[2017-12-05] MEDS ORDERED: Vancomycin Inj 1 GM/200 ML PIGGYBACK IV.SIG ONE (14:42)
--- NOTE | 2017-12-05 14:43 | XR ---
EXAM DATE: 12/05/2017 1:54 PM EDT AGE/SEX: 82 years / Female INDICATIONS: Fever. CLINICAL DATA: This is the patient's initial encounter. Patient reports that signs and symptoms have been present for 1 day and indicates a pain score of 0/10. MEDICAL/SURGICAL HISTORY: . Hypertension. Carcinoma, lung. Chronic obstructive pulmonary diseas e. . Appendectomy. Cholecystectomy.Hysterectomy. COMPARISON: [facility], CHEST SINGLE AP, 03/23/2015. . FINDINGS: The heart is enlarged. The pulmonary vascular pattern is normal. The lungs are clear. CONCLUSION: 1. Cardiomegaly. 2. No focal infiltrate or pulmonary vascular congestion. Electronically signed by: Daniel Lisa MD 12/05/2017 2:42 PM EDT
--- NOTE | 2017-12-05 14:45 | ED ---
HPI General Chief complaint: Skin/Abscess/Foreign Body Stated complaint: foot pain Time Seen by Provider: 12/05/17 13:30 History of Present Illness HPI narrative: Patient 82-year-old female with a history of C. difficile, COPD presents emergency department for evaluation of left foot redness swelling and pain. Symptoms been present for since about Friday, patient had a biopsy last week with her plastic surgeon last week and then he noticed that the blister had arisen on her foot on Friday, was popped using purulent material, she has not been on antibiotics. He sent her here for IV antibiotics admission to the hospital. Patient states the symptoms are gradually worsening, over the past week, associated signs symptoms context as above. Related Data Home Medications Medication Instructions Recorded Confirmed acetaminophen 650 mg PO Q8H 12/05/17 12/05/17 albuterol sulfate [Ventolin HFA] 2 puff INHALATION Q4-6H PRN 12/05/17 12/05/17 aspirin [Aspirin Low Dose] 81 mg PO DAILY 12/05/17 12/05/17 atorvastatin 40 mg PO DAILY 12/05/17 12/05/17 benazepril 20 mg PO BID 12/05/17 12/05/17 rffauziftn-ozuspwtazskkd-[id number] 2 cap PO Q4H PRN 12/05/17 12/05/17 [Fioricet] cranberry 500 mg PO BID 12/05/17 12/05/17 docusate sodium [Colace] 100 mg PO BID PRN 12/05/17 12/05/17 furosemide 40 mg PO BID 12/05/17 12/05/17 levothyroxine [Synthroid] 137 mcg PO DAILY 12/05/17 12/05/17 metoprolol tartrate 50 mg PO BID 12/05/17 12/05/17 omeprazole 20 mg PO DAILY 12/05/17 12/05/17 umeclidinium [Incruse Ellipta] 1 inh INHALATION Q24H 12/06/17 12/06/17 Previous Rx's Medication Instructions Recorded potassium chloride 10 meq PO BID 30 Days #60 cap 12/08/17 levofloxacin [Levaquin] 500 mg PO DAILY #4 tab 12/09/17 Allergies Allergy/AdvReac Type Severity Reaction Status Date / Time amlodipine Allergy Severe Anaphylaxis Verified 12/05/17 15:01 codeine Allergy Severe Shortness Verified 12/05/17 15:01 of Breath diazepam Allergy Severe NAUSEA/VOMI Verified 12/05/17 15:01 TING escitalopram Allergy Severe Anaphylaxis Verified 12/05/17 15:01 hydrocodone Allergy Severe headache Verified 12/05/17 15:01 Influenza Virus Vaccines Allergy Severe ANAPHLAXIS Verified 12/05/17 15:01 meperidine Allergy Severe VOMITING Verified 12/05/17 15:01 morphine Allergy Severe Anaphylaxis Verified 12/05/17 15:01 gabapentin Allergy Intermediate Shortness Verified 12/05/17 15:01 of Breath budesonide AdvReac Intermediate Pt states Verified 12/05/17 15:01 having having trouble with throat closing after tx clonidine AdvReac Unknown Dizziness Verified 12/05/17 15:01 Review of Systems ROS: all other systems reviewed are negative PMFSH Social History Social History Substance History: No History of Abuse Second Hand Smoke Exposure: No Smoking Status: Former smoker Tobacco Type: Cigarettes How Often Do You Have a Drink Containing Alcohol: Never Recent Out of Country Travel within the Last 8 Weeks: No Exam Narrative Exam Narrative: GENERAL: Well-developed well-nourished no obvious SKIN: Focused skin assessment warm/dry. Patient has 2 small blisters/pustules on the lateral aspect of the left foot, there is also a small pustule/blister on the medial aspect of the left foot. There is associated redness and some pitting edema of the foot as well. Does not proceed proximally to the ankle. HEAD: Atraumatic. Normocephalic. EYES: Pupils equal and round. No scleral icterus. No injection or drainage. ENT: No nasal bleeding or discharge. Mucous membranes pink and moist. NECK: Trachea midline. No JVD. CARDIOVASCULAR: Regular rate and rhythm. No murmur appreciated. RESPIRATORY: No accessory muscle use. Clear to auscultation. Breath sounds equal bilaterally. GASTROINTESTINAL: Abdomen soft, non-tender, nondistended. Hepatic and splenic margins not palpable. MUSCULOSKELETAL: No obvious deformities. No clubbing. No cyanosis. No edema. NEUROLOGICAL: Awake and alert. No obvious cranial nerve deficits. Motor grossly within normal limits. Normal speech. PSYCHIATRIC: Appropriate mood and affect; insight and judgment normal. Course Consultations Consultation #1: Dr. Hickman is admitting for Dr. Ruiz Time: 17:48 Initial Documented Vital Signs Temperature 98.4 F 12/05/17 13:21 Pulse Rate 96 H 12/05/17 13:21 Respiratory Rate 24 12/05/17 13:21 Blood Pressure 202/97 H 12/05/17 13:21 Pulse Oximetry 94 L 12/05/17 13:21 Last Documented Vital Signs Temperature 97.7 F 12/09/17 16:00 Pulse Rate 71 12/09/17 16:00 Respiratory Rate 18 12/09/17 16:00 Blood Pressure 134/63 12/09/17 16:00 Pulse Oximetry 95 12/09/17 17:32 Sign Out Sign Out Data: Patient Sign Out occurred on 12/05/17 at 17:04. Patient's care was discussed, and care was transferred from Daniel Escoto MD to Ann Brenner. Sign Out Comment: Reassess after blood pressure medication, admit for IV antibiotics. Last updated by Daniel Escoto MD at 12/05/17 16:45 Post-Handoff Eval: Care of this patient was assumed at 7 PM pending laboratory evaluation. She is here for admission for cellulitis of the dorsal aspect of her left foot. Her only complaint at this time is hunger. She states that she has not had hardly anything to eat today. She is currently eating some ayaka crackers. Medical Decision Making MDM Narrative Medical decision making narrative: Patient room to the emergency department, appears well and nontoxic, spoke with who would like the patient admitted to the hospital given a history of C. difficile for close monitoring after starting antibiotics. He is also concerned the patient may be on the border of sepsis. The patient has had to have similar admissions for abscesses to her right foot after similar biopsies in the past. He is also try to get the patient into wound care, however she has been declined because she has this history of C. difficile. Patient labs returned and the patient also does have urinary tract infection a dose of Zosyn was added to cover her broad-spectrum for infection in her foot as well as her UTI. Patient's white count is normal, she does have Sirs criteria with an elevated heart rate and elevated respiratory rate, unclear as to what her baseline is, this may be due from her history of COPD. Either way her plastic surgeon wants her admitted to the hospital I think this is reasonable. May will require a podiatry consult as well. I do not see any drainable fluid collections at this time. Medical Screen Exam Complete: Yes Emergency Medical Condition: Yes Lab Data Result diagrams: 12/08/17 07:05 12/09/17 06:21 Lab Results 12/05/17 12/05/17 12/05/17 Range/Units 14:40 14:40 14:40 WBC 10.8 (4.0-11.0) th/mm3 RBC 4.68 (4.00-5.30) mil/mm3 Hgb 14.9 (11.6-15.3) gm/dL Hct 41.6 (35.0-46.0) % MCV 88.9 (80.0-100.0) fL MCH 31.9 (27.0-34.0) pg MCHC 35.9 (32.0-36.0) % RDW 13.5 (11.6-17.2) % Plt Count 235 (150-450) th/mm3 MPV 9.2 (7.0-11.0) fL Neut % (Auto) 74.5 H (16.0-70.0) % Lymph % (Auto) 17.7 (9.0-44.0) % [place] % (Auto) 6.2 (0.0-8.0) % Eos % (Auto) 1.2 (0.0-4.0) % Baso % (Auto) 0.4 (0.0-2.0) % Neut # (Auto) 8.0 H (1.8-7.7) th/mm3 Lymph # (Auto) 1.9 (1.0-4.8) th/mm3 [place] # (Auto) 0.7 (0.0-0.9) th/mm3 Eos # (Auto) 0.1 (0.0-0.4) th/mm3 Baso # (Auto) 0.0 (0.0-0.2) th/mm3 WBC Differential . Differential Comment Auto diff final Sodium 145 (136-145) meq/L Potassium 3.2 L (3.5-5.1) meq/L Chloride 104 (98-107) meq/L Carbon Dioxide 32.2 H (21.0-32.0) meq/L Anion Gap 9 (5-15) meq/L BUN 12 (7-18) mg/dL Creatinine 0.72 (0.50-1.00) mg/dL Estimated GFR 77 L (>89) mL/min Random Glucose 103 (74-106) mg/dL Lactic Acid 1.0 (0.4-2.0) mmol/L Calcium 8.9 (8.5-10.1) mg/dL Total Bilirubin 0.4 (0.2-1.0) mg/dL AST 14 L (15-37) U/L ALT 15 (10-53) U/L Alkaline Phosphatase 113 (45-117) U/L Total Protein 6.9 (6.4-8.2) g/dL Albumin 3.7 (3.4-5.0) g/dL Urine Color (Yellw/Straw) Urine Clarity (Clear) Urine pH (5.0-8.5) Ur Specific [place] (1.002-1.035) Urine Protein (Neg-Trace) mg/dL Urine Glucose (UA) (Negative) mg/dL Urine Ketones (Negative) mg/dL Urine Occult Blood (Negative) Urine Nitrate (Negative) Urine Bilirubin (Negative) Urine Urobilinogen (Less than 2) mg/dL Ur Leukocyte Esterase (Negative) Urine RBC (0-3) /hpf Urine WBC (0-5) /hpf Urine WBC Clumps (None) Micro UA Comment Ur Microscopic Review Urine Culture Comments Vancomycin Trough (5.0-10.0) mcg/mL 12/05/17 12/06/17 12/06/17 Range/Units 15:30 08:14 08:14 WBC 8.0 (4.0-11.0) th/mm3 RBC 4.73 (4.00-5.30) mil/mm3 Hgb 14.4 (11.6-15.3) gm/dL Hct 42.8 (35.0-46.0) % MCV 90.5 (80.0-100.0) fL MCH 30.5 (27.0-34.0) pg MCHC 33.7 (32.0-36.0) % RDW 13.5 (11.6-17.2) % Plt Count 219 (150-450) th/mm3 MPV 9.0 (7.0-11.0) fL Neut % (Auto) 73.8 H (16.0-70.0) % Lymph % (Auto) 17.8 (9.0-44.0) % [place] % (Auto) 6.4 (0.0-8.0) % Eos % (Auto) 1.4 (0.0-4.0) % Baso % (Auto) 0.6 (0.0-2.0) % Neut # (Auto) 5.9 (1.8-7.7) th/mm3 Lymph # (Auto) 1.4 (1.0-4.8) th/mm3 [place] # (Auto) 0.5 (0.0-0.9) th/mm3 Eos # (Auto) 0.1 (0.0-0.4) th/mm3 Baso # (Auto) 0.0 (0.0-0.2) th/mm3 WBC Differential . Differential Comment Auto diff final Sodium 144 (136-145) meq/L Potassium 3.0 L (3.5-5.1) meq/L Chloride 101 (98-107) meq/L Carbon Dioxide 33.2 H (21.0-32.0) meq/L Anion Gap 10 (5-15) meq/L BUN 10 (7-18) mg/dL Creatinine 0.82 (0.50-1.00) mg/dL Estimated GFR 66 L (>89) mL/min Random Glucose 111 H (74-106) mg/dL Lactic Acid (0.4-2.0) mmol/L Calcium 8.7 (8.5-10.1) mg/dL Total Bilirubin (0.2-1.0) mg/dL AST (15-37) U/L ALT (10-53) U/L Alkaline Phosphatase (45-117) U/L Total Protein (6.4-8.2) g/dL Albumin (3.4-5.0) g/dL Urine Color Yellow (Yellw/Straw) Urine Clarity Hazy H (Clear) Urine pH 5.0 (5.0-8.5) Ur Specific [place] 1.009 (1.002-1.035) Urine Protein 30 H (Neg-Trace) mg/dL Urine Glucose (UA) Negative (Negative) mg/dL Urine Ketones Negative (Negative) mg/dL Urine Occult Blood Small H (Negative) Urine Nitrate Negative (Negative) Urine Bilirubin Negative (Negative) Urine Urobilinogen Less than 2 (Less than 2) mg/dL Ur Leukocyte Esterase Small H (Negative) Urine RBC 1 (0-3) /hpf Urine WBC 51 H (0-5) /hpf Urine WBC Clumps Few H (None) Micro UA Comment Culture indicated Ur Microscopic Review Not Reportable Urine Culture Comments Culture indicated Vancomycin Trough (5.0-10.0) mcg/mL 12/06/17 12/07/17 12/07/17 Range/Units 16:54 05:57 05:57 WBC 7.1 (4.0-11.0) th/mm3 RBC 4.57 (4.00-5.30) mil/mm3 Hgb 13.7 (11.6-15.3) gm/dL Hct 40.8 (35.0-46.0) % MCV 89.3 (80.0-100.0) fL MCH 30.0 (27.0-34.0) pg MCHC 33.6 (32.0-36.0) % RDW 13.7 (11.6-17.2) % Plt Count 209 (150-450) th/mm3 MPV 9.1 (7.0-11.0) fL Neut % (Auto) 68.2 (16.0-70.0) % Lymph % (Auto) 20.4 (9.0-44.0) % [place] % (Auto) 8.3 H (0.0-8.0) % Eos % (Auto) 2.7 (0.0-4.0) % Baso % (Auto) 0.4 (0.0-2.0) % Neut # (Auto) 4.8 (1.8-7.7) th/mm3 Lymph # (Auto) 1.4 (1.0-4.8) th/mm3 [place] # (Auto) 0.6 (0.0-0.9) th/mm3 Eos # (Auto) 0.2 (0.0-0.4) th/mm3 Baso # (Auto) 0.0 (0.0-0.2) th/mm3 WBC Differential . Differential Comment Auto diff final Sodium 143 143 (136-145) meq/L Potassium 3.3 L 3.6 (3.5-5.1) meq/L Chloride 102 101 (98-107) meq/L Carbon Dioxide 37.5 H 35.1 H (21.0-32.0) meq/L Anion Gap 4 L 7 (5-15) meq/L BUN 10 15 (7-18) mg/dL Creatinine 0.83 0.79 (0.50-1.00) mg/dL Estimated GFR 65 L 69 L (>89) mL/min Random Glucose 92 96 (74-106) mg/dL Lactic Acid (0.4-2.0) mmol/L Calcium 8.6 8.9 (8.5-10.1) mg/dL Total Bilirubin (0.2-1.0) mg/dL AST (15-37) U/L ALT (10-53) U/L Alkaline Phosphatase (45-117) U/L Total Protein (6.4-8.2) g/dL Albumin (3.4-5.0) g/dL Urine Color (Yellw/Straw) Urine Clarity (Clear) Urine pH (5.0-8.5) Ur Specific [place] (1.002-1.035) Urine Protein (Neg-Trace) mg/dL Urine Glucose (UA) (Negative) mg/dL Urine Ketones (Negative) mg/dL Urine Occult Blood (Negative) Urine Nitrate (Negative) Urine Bilirubin (Negative) Urine Urobilinogen (Less than 2) mg/dL Ur Leukocyte Esterase (Negative) Urine RBC (0-3) /hpf Urine WBC (0-5) /hpf Urine WBC Clumps (None) Micro UA Comment Ur Microscopic Review Urine Culture Comments Vancomycin Trough (5.0-10.0) mcg/mL 12/08/17 12/08/17 12/08/17 Range/Units 07:05 07:05 16:15 WBC 7.0 (4.0-11.0) th/mm3 RBC 4.62 (4.00-5.30) mil/mm3 Hgb 14.0 (11.6-15.3) gm/dL Hct 41.8 (35.0-46.0) % MCV 90.5 (80.0-100.0) fL MCH 30.2 (27.0-34.0) pg MCHC 33.4 (32.0-36.0) % RDW 13.6 (11.6-17.2) % Plt Count 202 (150-450) th/mm3 MPV 9.0 (7.0-11.0) fL Neut % (Auto) 70.7 H (16.0-70.0) % Lymph % (Auto) 19.6 (9.0-44.0) % [place] % (Auto) 6.5 (0.0-8.0) % Eos % (Auto) 2.8 (0.0-4.0) % Baso % (Auto) 0.4 (0.0-2.0) % Neut # (Auto) 4.9 (1.8-7.7) th/mm3 Lymph # (Auto) 1.4 (1.0-4.8) th/mm3 [place] # (Auto) 0.5 (0.0-0.9) th/mm3 Eos # (Auto) 0.2 (0.0-0.4) th/mm3 Baso # (Auto) 0.0 (0.0-0.2) th/mm3 WBC Differential . Differential Comment Auto diff final Sodium 144 (136-145) meq/L Potassium 3.9 (3.5-5.1) meq/L Chloride 100 (98-107) meq/L Carbon Dioxide 35.7 H (21.0-32.0) meq/L Anion Gap 8 (5-15) meq/L BUN 20 H (7-18) mg/dL Creatinine 0.87 (0.50-1.00) mg/dL Estimated GFR 62 L (>89) mL/min Random Glucose 99 (74-106) mg/dL Lactic Acid (0.4-2.0) mmol/L Calcium 8.8 (8.5-10.1) mg/dL Total Bilirubin (0.2-1.0) mg/dL AST (15-37) U/L ALT (10-53) U/L Alkaline Phosphatase (45-117) U/L Total Protein (6.4-8.2) g/dL Albumin (3.4-5.0) g/dL Urine Color (Yellw/Straw) Urine Clarity (Clear) Urine pH (5.0-8.5) Ur Specific [place] (1.002-1.035) Urine Protein (Neg-Trace) mg/dL Urine Glucose (UA) (Negative) mg/dL Urine Ketones (Negative) mg/dL Urine Occult Blood (Negative) Urine Nitrate (Negative) Urine Bilirubin (Negative) Urine Urobilinogen (Less than 2) mg/dL Ur Leukocyte Esterase (Negative) Urine RBC (0-3) /hpf Urine WBC (0-5) /hpf Urine WBC Clumps (None) Micro UA Comment Ur Microscopic Review Urine Culture Comments Vancomycin Trough 13.9 H (5.0-10.0) mcg/mL 12/09/17 Range/Units 06:21 WBC (4.0-11.0) th/mm3 RBC (4.00-5.30) mil/mm3 Hgb (11.6-15.3) gm/dL Hct (35.0-46.0) % MCV (80.0-100.0) fL MCH (27.0-34.0) pg MCHC (32.0-36.0) % RDW (11.6-17.2) % Plt Count (150-450) th/mm3 MPV (7.0-11.0) fL Neut % (Auto) (16.0-70.0) % Lymph % (Auto) (9.0-44.0) % [place] % (Auto) (0.0-8.0) % Eos % (Auto) (0.0-4.0) % Baso % (Auto) (0.0-2.0) % Neut # (Auto) (1.8-7.7) th/mm3 Lymph # (Auto) (1.0-4.8) th/mm3 [place] # (Auto) (0.0-0.9) th/mm3 Eos # (Auto) (0.0-0.4) th/mm3 Baso # (Auto) (0.0-0.2) th/mm3 WBC Differential Differential Comment Sodium 141 (136-145) meq/L Potassium 3.9 (3.5-5.1) meq/L Chloride 98 (98-107) meq/L Carbon Dioxide 36.2 H (21.0-32.0) meq/L Anion Gap 7 (5-15) meq/L BUN 24 H (7-18) mg/dL Creatinine 0.94 (0.50-1.00) mg/dL Estimated GFR 57 L (>89) mL/min Random Glucose 97 (74-106) mg/dL Lactic Acid (0.4-2.0) mmol/L Calcium 9.4 (8.5-10.1) mg/dL Total Bilirubin (0.2-1.0) mg/dL AST (15-37) U/L ALT (10-53) U/L Alkaline Phosphatase (45-117) U/L Total Protein (6.4-8.2) g/dL Albumin (3.4-5.0) g/dL Urine Color (Yellw/Straw) Urine Clarity (Clear) Urine pH (5.0-8.5) Ur Specific [place] (1.002-1.035) Urine Protein (Neg-Trace) mg/dL Urine Glucose (UA) (Negative) mg/dL Urine Ketones (Negative) mg/dL Urine Occult Blood (Negative) Urine Nitrate (Negative) Urine Bilirubin (Negative) Urine Urobilinogen (Less than 2) mg/dL Ur Leukocyte Esterase (Negative) Urine RBC (0-3) /hpf Urine WBC (0-5) /hpf Urine WBC Clumps (None) Micro UA Comment Ur Microscopic Review Urine Culture Comments Vancomycin Trough (5.0-10.0) mcg/mL Imaging Data Radiologist's impression: Chest X-Ray 12/05/17 13:54 CONCLUSION: 1. Cardiomegaly. 2. No focal infiltrate or pulmonary vascular congestion. Discharge Plan Discharge Disposition Patient Disposition: 30 Still Patient Discharge Condition Condition: Stable Discharge Order Discharge Orders: Discharge Order (Routine); Ordered 12/09/17 Ordered By: Mark West Discharge Details Anticipated Discharge Date: 12/08/17 Discharge Comment: Pt has followup with her PCP, Dr. Mendez, scheduled on 12/10/17 Diagnosis: Cellulitis and abscess of foot Physicians Team ED Provider: Ann Brenner Primary Care Provider: UNKNOWN, Attending Provider: Danny Ruiz Other Providers: Jennifer John ; [facility] Status ED Status: Left Department Discharge Information Discharge Date/Time: 12/05/17 19:04
[2017-12-05 15:32] LABS: Alanine Aminotransferase 15 U/L (10-53); Albumin 3.7 g/dL (3.4-5.0); Anion Gap 9 meq/L (5-15); Aspartate Aminotransferase 14 U/L (15-37); Blood Urea Nitrogen 12 mg/dL (7-18); Calcium 8.9 mg/dL (8.5-10.1); Carbon Dioxide 32.2 meq/L (21.0-32.0); Chloride 104 meq/L (98-107); Glomerular Filtration Rate 77 mL/min (>89); Glucose,Random 103 mg/dL (74-106); Potassium 3.2 meq/L (3.5-5.1); Sodium 145 meq/L (136-145)
[2017-12-05 15:35] LABS: Alkaline Phosphatase 113 U/L (45-117); Total Protein 6.9 g/dL (6.4-8.2)
[2017-12-05] MEDS ORDERED: Vancomycin Inj 1,000 MG in Sodium Chlor 0.9% Inj 250 ML IV.SIG ONE (16:00)
[2017-12-05 16:19] LABS: Bilirubin,Urine Negative (Negative); Clarity,Urine Hazy (Clear); Color,Urine Yellow (Yellw/Straw); Glucose,Urine (UA) Negative (Negative); Leukocyte Esterase,Urine Small (Negative); Nitrite,Urine Negative (Negative); Specific Gravity,Urine 1.009 (1.002-1.035)
[2017-12-05] MEDS ORDERED: Piperacil/Tazo 4.5 GM Premix 4.5 GM/100 ML BAG IV.SIG ONE (16:23)
[2017-12-05 16:26] LABS: Baso % (Auto) 0.4 % (0.0-2.0); Eos # (Auto) 0.1 th/mm3 (0.0-0.4); Eos % (Auto) 1.2 % (0.0-4.0); Hematocrit 41.6 % (35.0-46.0); Hemoglobin 14.9 gm/dL (11.6-15.3); Lymph # (Auto) 1.9 th/mm3 (1.0-4.8); Lymph % (Auto) 17.7 % (9.0-44.0); Mean Corpuscular HGB Conc 35.9 % (32.0-36.0); Mean Corpuscular Hemoglobin 31.9 pg (27.0-34.0); Mean Corpuscular Volume 88.9 fL (80.0-100.0); Mean Platelet Volume 9.2 fL (7.0-11.0); Mono # (Auto) 0.7 th/mm3 (0.0-0.9); Mono % (Auto) 6.2 % (0.0-8.0); Neut % (Auto) 74.5 % (16.0-70.0); Platelet Count 235 th/mm3 (150-450); Red Blood Count 4.68 mil/mm3 (4.00-5.30); Red Cell Distribution Width 13.5 % (11.6-17.2); White Blood Count 10.8 th/mm3 (4.0-11.0)
[2017-12-05] MEDS ORDERED: Butalbital/APAP/Caff 50/325/40 MG Tablet PO ONE (16:43)
[2017-12-05] MEDS ORDERED: Metoprolol Inj 5 MG/5 ML Vial IV.PUSH ONE (16:43)
[2017-12-05] MEDS ORDERED: Vancomycin Consult Pharmacy 1 EACH OTHER SCH (17:45)
[2017-12-05] MEDS: Acetaminophen 325 MG Tablet PO SCH (17:58)
[2017-12-05] MEDS ORDERED: Vancomycin Inj 500 MG in Sodium Chlor 0.9% Inj 100 ML IV.SIG ONE (18:00)
[2017-12-05] MEDS: Piperacil/Tazo 3.375 GM Premix 50 ML IV.SIG SCH (18:03)
--- NOTE | 2017-12-05 18:07 | P.HP ---
History of Present Illness Service: [facility] hospitalist Primary Care Physician: UNKNOWN Chief Complaint: sent by dermatology for admit for cellulitis abscess History of Present Illness: HPI narrative: Patient 82-year-old female with a ? of history of C. difficile, COPD presents emergency department for evaluation of left foot redness swelling and pain. Symptoms been present for since about Friday, patient had a biopsy last week with her plastic surgeon last week and then he noticed that the blister had arisen on her foot on Friday, was popped using purulent material, she has not been on antibiotics. He sent her here for IV antibiotics admission to the hospital. Patient states the symptoms are gradually worsening, over the past week, associated signs symptoms context as above. Patient foot consistent with cellulitis cannot r/o abscess and will start on zosyn and vancomycin and get wound care evaluation. Related Data - Diagnosis (1) Cellulitis and abscess of foot Review of Systems Musculoskeletal: Reports joint pain, Reports joint swelling, Reports limited joint movement PMFSH - History History Provided By: Patient - Medical History Medical History: Medical History (Last Reviewed 12/05/17 @ 18:01 by Aleks Hickman MD) COPD (chronic obstructive pulmonary disease) History of hysterectomy Hyperlipemia Hypothyroid - Surgical History Surgical History: Surgical History (Last Reviewed 12/05/17 @ 18:01 by Aleks Hickman MD) H/O colectomy History of cataract surgery Hx of appendectomy Hx of cholecystectomy Knee joint replacement status S/P lobectomy of lung - Tobacco History Second Hand Smoke Exposure: No Tobacco Use In Past 30 Days: No Smoking Status: Former smoker Tobacco Type: Cigarettes - Alcohol History How Often Do You Have a Drink Containing Alcohol: Never - Substance Use History Substance History: No History of Abuse - Travel History Recent Travel Out of the Country Within the Last 8 Weeks: No - Immunization History Tetanus Immunization: Unsure Medications and Allergies Active Medications: Active Medications Aspirin (Ecotrin) 81 mg PO DAILY REYNALDO Atorvastatin Calcium (Lipitor) 40 mg PO DAILY REYNALDO Docusate Sodium (Colace) 100 mg PO BID PRN PRN Reason: Constipation Furosemide (Lasix) 40 mg PO BID REYNALDO Metoprolol Tartrate (Lopressor) 50 mg PO BID REYNALDO Non-Formulary Medication (Albuterol Sulfate) 2 puff INHALATION Q4-6H PRN PRN Reason: Shortness Of Breath Non-Formulary Medication (Benazepril [Benazepril]) 20 mg PO BID REYNALDO Non-Formulary Medication (Ovtkxeqgfy-Bvfjppfkxmllo-Azux [Fioricet]) 2 cap PO Q4H PRN PRN Reason: Headache Non-Formulary Medication (Levothyroxine [Synthroid]) 137 mcg PO DAILY REYNALDO Non-Formulary Medication (Acetaminophen [Acetaminophen]) 650 mg PO Q8H REYNALDO Pantoprazole Sodium (Protonix) 20 mg PO DAILY REYNALDO Allergies Allergy/AdvReac Type Severity Reaction Status Date / Time acetaminophen Allergy Severe headache Verified 12/05/17 15:01 amlodipine Allergy Severe Anaphylaxis Verified 12/05/17 15:01 codeine Allergy Severe Shortness Verified 12/05/17 15:01 of Breath diazepam Allergy Severe NAUSEA/VOMI Verified 12/05/17 15:01 TING escitalopram Allergy Severe Anaphylaxis Verified 12/05/17 15:01 hydrocodone Allergy Severe headache Verified 12/05/17 15:01 Influenza Virus Vaccines Allergy Severe ANAPHLAXIS Verified 12/05/17 15:01 meperidine Allergy Severe VOMITING Verified 12/05/17 15:01 morphine Allergy Severe Anaphylaxis Verified 12/05/17 15:01 gabapentin Allergy Intermediate Shortness Verified 12/05/17 15:01 of Breath budesonide AdvReac Intermediate Pt states Verified 12/05/17 15:01 having having trouble with throat closing after tx clonidine AdvReac Unknown Dizziness Verified 12/05/17 15:01 Home Medications Medication Instructions Recorded Confirmed Type acetaminophen 650 mg PO Q8H 12/05/17 12/05/17 History albuterol sulfate [Ventolin HFA] 2 puff INHALATION Q4-6H PRN 12/05/17 12/05/17 History aspirin [Aspirin Low Dose] 81 mg PO DAILY 12/05/17 12/05/17 History atorvastatin 40 mg PO DAILY 12/05/17 12/05/17 History benazepril 20 mg PO BID 12/05/17 12/05/17 History tiorrywatv-cpgluvzszwkdj-fccn 2 cap PO Q4H PRN 12/05/17 12/05/17 History [Fioricet] cranberry 500 mg PO BID 12/05/17 12/05/17 History docusate sodium [Colace] 100 mg PO BID PRN 12/05/17 12/05/17 History furosemide 40 mg PO BID 12/05/17 12/05/17 History levothyroxine [Synthroid] 137 mcg PO DAILY 12/05/17 12/05/17 History metoprolol tartrate 50 mg PO BID 12/05/17 12/05/17 History omeprazole 20 mg PO DAILY 12/05/17 12/05/17 History Exam Vital signs: Vital Signs 12/05/17 13:21 Temperature 98.4 F Pulse Rate 96 H Respiratory Rate 24 Blood Pressure 202/97 H Pulse Oximetry 94 L Intake & Output 12/04/17 12/05/17 12/05/17 18:59 06:59 18:59 Intake Total 250 / 250 Balance 250 / 250 Weight 75.75 kg Intake: IV 250 / 250 Vancomycin Inj 1,000 MG In NS 250 / 250 Inj 250 ML @ 250 mls/hr IV.SIG ONCE ONE Rx#:[id number] Narrative: GENERAL: SKIN: Warm and dry. 2 small blisters/pustules on lateral aspect Left foot and small pustulla medial left foot red with pitting edema HEAD: Normocephalic. EYES: No scleral icterus. No injection or drainage. NECK: Supple, trachea midline. No JVD or lymphadenopathy. CARDIOVASCULAR: Regular rate and rhythm without murmurs, gallops, or rubs. RESPIRATORY: Breath sounds equal bilaterally. No accessory muscle use. GASTROINTESTINAL: Abdomen soft, non-tender, nondistended. MUSCULOSKELETAL: No cyanosis, or edema. see above BACK: Nontender without obvious deformity. No CVA tenderness. Results - Labs CBC & Chem 7: 12/05/17 14:40 12/05/17 14:40 Labs: Laboratory Results - last 24 hr 12/05/17 12/05/17 12/05/17 14:40 14:40 14:40 WBC 10.8 RBC 4.68 Hgb 14.9 Hct 41.6 MCV 88.9 MCH 31.9 MCHC 35.9 RDW 13.5 Plt Count 235 MPV 9.2 Neut % (Auto) 74.5 H Lymph % (Auto) 17.7 [place] % (Auto) 6.2 Eos % (Auto) 1.2 Baso % (Auto) 0.4 Neut # (Auto) 8.0 H Lymph # (Auto) 1.9 [place] # (Auto) 0.7 Eos # (Auto) 0.1 Baso # (Auto) 0.0 WBC Differential . Differential Comment Auto diff final Sodium 145 Potassium 3.2 L Chloride 104 Carbon Dioxide 32.2 H Anion Gap 9 BUN 12 Creatinine 0.72 Estimated GFR 77 L Random Glucose 103 Lactic Acid 1.0 Calcium 8.9 Total Bilirubin 0.4 AST 14 L ALT 15 Alkaline Phosphatase 113 Total Protein 6.9 Albumin 3.7 Urine Color Urine Clarity Urine pH Ur Specific [place] Urine Protein Urine Glucose (UA) Urine Ketones Urine Occult Blood Urine Nitrate Urine Bilirubin Urine Urobilinogen Ur Leukocyte Esterase Urine RBC Urine WBC Urine WBC Clumps Micro UA Comment Ur Microscopic Review Urine Culture Comments 12/05/17 15:30 WBC RBC Hgb Hct MCV MCH MCHC RDW Plt Count MPV Neut % (Auto) Lymph % (Auto) [place] % (Auto) Eos % (Auto) Baso % (Auto) Neut # (Auto) Lymph # (Auto) [place] # (Auto) Eos # (Auto) Baso # (Auto) WBC Differential Differential Comment Sodium Potassium Chloride Carbon Dioxide Anion Gap BUN Creatinine Estimated GFR Random Glucose Lactic Acid Calcium Total Bilirubin AST ALT Alkaline Phosphatase Total Protein Albumin Urine Color Yellow Urine Clarity Hazy H Urine pH 5.0 Ur Specific [place] 1.009 Urine Protein 30 H Urine Glucose (UA) Negative Urine Ketones Negative Urine Occult Blood Small H Urine Nitrate Negative Urine Bilirubin Negative Urine Urobilinogen Less than 2 Ur Leukocyte Esterase Small H Urine RBC 1 Urine WBC 51 H Urine WBC Clumps Few H Micro UA Comment Culture indicated Ur Microscopic Review Not Reportable Urine Culture Comments Culture indicated - Imaging Impressions Chest X-Ray 12/05/17 13:54 CONCLUSION: 1. Cardiomegaly. 2. No focal infiltrate or pulmonary vascular congestion. Caprini VTE Risk Assessment Caprini VTE Risk Assessment: Moderate/High Risk (score >= 2) Caprini Risk Assessment Model: Point Value = 1 Point Value = 2 Point Value = 3 Point Value = 5 Age 41-60 Minor surgery BMI > 25 kg/m2 Swollen legs Varicose veins or History of unexplained or recurrent spontaneous Oral contraceptives or hormone replacement Sepsis (< 1 month) Serious lung disease, including pneumonia (< 1 month) Abnormal pulmonary function Acute myocardial infarction Congestive heart failure (< 1 month) History of inflammatory bowel disease Medical patient at bed rest Age 61-74 Arthroscopic surgery Major open surgery (> 45 min) Laparoscopic surgery (> 45 min) Malignancy Confined to bed (> 72 hours) Immobilizing plaster cast Central venous access Age >= 75 History of VTE Family history of VTE Factor V Leiden Prothrombin [id number] Lupus anticoagulant Anticardiolipin antibodies Elevated serum homocysteine Heparin-induced thrombocytopenia Other congenital or acquired thrombophilia Stroke (< 1 month) Elective arthroplasty Hip, pelvis, or leg fracture Acute spinal cord injury (< 1 month) Prophylaxis Regimen: Total Risk Factor Score Risk Level Prophylaxis Regimen 0-1 Low Early ambulation 2 Moderate Order ONE of the following: *Sequential Compression Device (SCD) *Heparin 5000 units SQ BID 3-4 Higher Order ONE of the following medications: *Heparin 5000 units SQ TID *Enoxaparin/Lovenox 40 mg SQ daily (WT < 150 kg, CrCl > 30 mL/min) *Enoxaparin/Lovenox 30 mg SQ daily (WT < 150 kg, CrCl > 10-29 mL/min) *Enoxaparin/Lovenox 30 mg SQ BID (WT < 150 kg, CrCl > 30 mL/min) AND/OR *Sequential Compression Device (SCD) 5 or more Highest Order ONE of the following medications: *Heparin 5000 units SQ TID (Preferred with Epidurals) *Enoxaparin/Lovenox 40 mg SQ daily (WT < 150 kg, CrCl > 30 mL/min) *Enoxaparin/Lovenox 30 mg SQ daily (WT < 150 kg, CrCl > 10-29 mL/min) *Enoxaparin/Lovenox 30 mg SQ BID (WT < 150 kg, CrCl > 30 mL/min) AND *Sequential Compression Device (SCD) Assessment and Plan - Assessment (1) Cellulitis and abscess of foot Code(s): L03.119 - Cellulitis of unspecified part of limb; L02.619 - Cutaneous abscess of unspecified foot Status: Acute Plan: will continue zosyn and vancomycin consult wound care follow labs - Plan as above continue home medications there was question of c diff and ordered test in er. Code Status: full Discussed Condition With: patient
[2017-12-05] MEDS: Furosemide 40 MG Tablet PO SCH (18:45)
[2017-12-05] MEDS: Enoxaparin Inj 30 MG/0.3 ML Syringe SQ SCH (18:45)
[2017-12-05] MEDS: Metoprolol Tartrate 50 MG Tablet PO SCH (20:47)
[2017-12-05] MEDS: Lisinopril 20 MG Tablet PO SCH (20:49)
[2017-12-05] MEDS ORDERED: Non-Formulary Drug (Cranberry [Cranberry] 500 MG) PO SCH (21:00)
[2017-12-06] MEDS: Acetaminophen 325 MG Tablet PO SCH ×2 (01:55→06:06)
[2017-12-06] MEDS: Piperacil/Tazo 3.375 GM Premix 50 ML IV.SIG SCH ×2 (02:14→09:25)
[2017-12-06] MEDS: Levothyroxine 112 MCG Tablet PO SCH (05:54)
[2017-12-06 09:02] LABS: Baso % (Auto) 0.6 % (0.0-2.0); Eos # (Auto) 0.1 th/mm3 (0.0-0.4); Eos % (Auto) 1.4 % (0.0-4.0); Hematocrit 42.8 % (35.0-46.0); Hemoglobin 14.4 gm/dL (11.6-15.3); Lymph # (Auto) 1.4 th/mm3 (1.0-4.8); Lymph % (Auto) 17.8 % (9.0-44.0); Mean Corpuscular HGB Conc 33.7 % (32.0-36.0); Mean Corpuscular Hemoglobin 30.5 pg (27.0-34.0); Mean Corpuscular Volume 90.5 fL (80.0-100.0); Mono # (Auto) 0.5 th/mm3 (0.0-0.9); Mono % (Auto) 6.4 % (0.0-8.0); Neut # (Auto) 5.9 th/mm3 (1.8-7.7); Neut % (Auto) 73.8 % (16.0-70.0); Platelet Count 219 th/mm3 (150-450); Red Blood Count 4.73 mil/mm3 (4.00-5.30); Red Cell Distribution Width 13.5 % (11.6-17.2)
[2017-12-06] MEDS: Lisinopril 20 MG Tablet PO SCH ×2 (09:24→21:42)
[2017-12-06] MEDS: Pantoprazole Sodium 20 MG DR Tablet PO SCH (09:24)
[2017-12-06 09:25] LABS: Calcium 8.7 mg/dL (8.5-10.1); Carbon Dioxide 33.2 meq/L (21.0-32.0)
[2017-12-06] MEDS: Metoprolol Tartrate 50 MG Tablet PO SCH ×2 (09:25→21:41)
[2017-12-06] MEDS: Furosemide 40 MG Tablet PO SCH ×3 (09:37→17:05)
[2017-12-06] MEDS ORDERED: Acetaminophen 325 MG Tablet PO PRN (09:52)
[2017-12-06] MEDS: Butalbital/APAP/Caff 50/325/40 MG Tablet PO PRN (10:06)
[2017-12-06] MEDS: Potassium Chloride 10 MEQ ER Capsule PO SCH ×3 (10:27→21:40)
[2017-12-06] MEDS ORDERED: RESP: Levalbuterol 1.25 MG/3 ML Neb (PRN) NEB (10:33)
[2017-12-06] MEDS ORDERED: Sodium Chloride 0.9% 2 ML Flush PRN IV.FLUSH (10:41)
--- NOTE | 2017-12-06 11:32 | P.PNIM ---
Subjective Interval history: Pt reports that her left foot is looking better today There are four smaller areas of pustules on the top of her foot but the erythema and swelling is reportedly better. She is having some wheezing this morning. She reports multiple medication sensitivities and intolerances but the hospital does not have her Incruse Elipta on formulary or her Benazepril. Her BP has been elevated into the 160-170's systolic this morning. Pt refused Duonebs due to a reported allergic reaction and Albuterol nebs cause her to have tachycardia. Physical Exam Vital signs: Vital Signs 12/05/17 13:21 12/05/17 17:36 12/05/17 17:52 Temperature 98.4 F Pulse Rate 96 H 82 86 Respiratory Rate 24 18 Blood Pressure 202/97 H 215/89 H 215/89 H Pulse Oximetry 94 L 99 12/05/17 18:07 12/05/17 20:00 12/05/17 23:48 Temperature 97.2 F L Pulse Rate 86 77 81 Respiratory Rate 19 18 Blood Pressure 148/95 H 190/84 H Pulse Oximetry 97 96 12/06/17 00:00 12/06/17 00:25 12/06/17 04:00 Temperature 97.5 F L 98.0 F Pulse Rate 61 55 L Respiratory Rate 18 18 Blood Pressure 177/73 H 168/72 H Pulse Oximetry 98 97 97 12/06/17 08:00 Temperature 97.2 F L Pulse Rate 67 Respiratory Rate Blood Pressure 176/76 H Pulse Oximetry 100 Intake & Output 12/05/17 12/06/17 12/06/17 18:59 06:59 18:59 Intake Total 350 / 350 450 / 450 Balance 350 / 350 450 / 450 Weight 75.75 kg 82 kg Intake: IV 350 / 350 50 / 50 Zosyn 3.375 GM Premix 50 ML @ 50 / 50 100 mls/hr IV.SIG Q8H [facility] Rx#: [id number] Zosyn 4.5 GM Premix 4.5 gm In 100 / 100 100 ml @ 200 mls/hr IV.SIG ONCE ONE Rx#:[id number] Vancomycin Inj 1,000 MG In NS 250 / 250 Inj 250 ML @ 250 mls/hr IV.SIG ONCE ONE Rx#:[id number] Oral 400 / 400 Other: Weight On Admission 82.2 kg Narrative: GENERAL: NAD, AAOx3 SKIN: Warm and dry. 2 small blisters/pustules on lateral aspect Left foot and 2 small pustule medial left foot with erythema and tenderness, less swelling and erythema reported today CARDIO: Regular RESP: Slight wheezing, worse on the left side ABD: +BS, soft, non-tender, nondistended. Ext:: Left ankle edema improving. see above Results - Labs CBC & Chem 7: 12/06/17 08:14 12/06/17 08:14 Laboratory Results - last 24 hr 12/05/17 12/05/17 12/05/17 14:40 14:40 14:40 WBC 10.8 RBC 4.68 Hgb 14.9 Hct 41.6 MCV 88.9 MCH 31.9 MCHC 35.9 RDW 13.5 Plt Count 235 MPV 9.2 Neut % (Auto) 74.5 H Lymph % (Auto) 17.7 [place] % (Auto) 6.2 Eos % (Auto) 1.2 Baso % (Auto) 0.4 Neut # (Auto) 8.0 H Lymph # (Auto) 1.9 [place] # (Auto) 0.7 Eos # (Auto) 0.1 Baso # (Auto) 0.0 WBC Differential . Differential Comment Auto diff final Sodium 145 Potassium 3.2 L Chloride 104 Carbon Dioxide 32.2 H Anion Gap 9 BUN 12 Creatinine 0.72 Estimated GFR 77 L Random Glucose 103 Lactic Acid 1.0 Calcium 8.9 Total Bilirubin 0.4 AST 14 L ALT 15 Alkaline Phosphatase 113 Total Protein 6.9 Albumin 3.7 Urine Color Urine Clarity Urine pH Ur Specific [place] Urine Protein Urine Glucose (UA) Urine Ketones Urine Occult Blood Urine Nitrate Urine Bilirubin Urine Urobilinogen Ur Leukocyte Esterase Urine RBC Urine WBC Urine WBC Clumps Micro UA Comment Ur Microscopic Review Urine Culture Comments 12/05/17 12/06/17 12/06/17 15:30 08:14 08:14 WBC 8.0 RBC 4.73 Hgb 14.4 Hct 42.8 MCV 90.5 MCH 30.5 MCHC 33.7 RDW 13.5 Plt Count 219 MPV 9.0 Neut % (Auto) 73.8 H Lymph % (Auto) 17.8 [place] % (Auto) 6.4 Eos % (Auto) 1.4 Baso % (Auto) 0.6 Neut # (Auto) 5.9 Lymph # (Auto) 1.4 [place] # (Auto) 0.5 Eos # (Auto) 0.1 Baso # (Auto) 0.0 WBC Differential . Differential Comment Auto diff final Sodium 144 Potassium 3.0 L Chloride 101 Carbon Dioxide 33.2 H Anion Gap 10 BUN 10 Creatinine 0.82 Estimated GFR 66 L Random Glucose 111 H Lactic Acid Calcium 8.7 Total Bilirubin AST ALT Alkaline Phosphatase Total Protein Albumin Urine Color Yellow Urine Clarity Hazy H Urine pH 5.0 Ur Specific [place] 1.009 Urine Protein 30 H Urine Glucose (UA) Negative Urine Ketones Negative Urine Occult Blood Small H Urine Nitrate Negative Urine Bilirubin Negative Urine Urobilinogen Less than 2 Ur Leukocyte Esterase Small H Urine RBC 1 Urine WBC 51 H Urine WBC Clumps Few H Micro UA Comment Culture indicated Ur Microscopic Review Not Reportable Urine Culture Comments Culture indicated Microbiology 12/05/17 14:40 Blood - Peripheral Aerobic Blood Culture - Preliminary No growth in 1 day 12/05/17 14:40 Blood - Peripheral Anaerobic Blood Culture - Preliminary No growth in 1 day 12/05/17 14:35 Blood - Peripheral Aerobic Blood Culture - Preliminary No growth in 1 day 12/05/17 14:35 Blood - Peripheral Anaerobic Blood Culture - Preliminary No growth in 1 day - Imaging Impressions Chest X-Ray 12/05/17 13:54 CONCLUSION: 1. Cardiomegaly. 2. No focal infiltrate or pulmonary vascular congestion. Assessment and Plan - Assessment (1) Cellulitis Code(s): L03.90 - Cellulitis, unspecified Status: Acute Plan: Cellulitis, left foot - Pt is an 82 y/o female with severe COPD on 2-3L of supplemental O2 chronically , HTN, Hypothyroidism, hx of lung cancer s/p RUL lobectomy in 2010, and CAD - Pt presented to the ED at [facility] on 12/05/17 for evaluation of left foot redness, swelling and pain. Pt reports that 2 weeks ago she had some skin cancer frozen on her left foot. Then around 1 week ago she started having some redness and swelling and then a large blister appeared on the top pf her foot. She was seen by her plastic surgeon this past week and pt reports that he lanced the blister and pus and fluid came out. She has been applying Bactroban topically to the foot but it was not getting any better. He saw her in followed up yesterday and then sent her to the ED for IV antibiotics and admission to the hospital. - Pt was started on IV Vancomycin and Zosyn in the ED and these were continued at admission. - Pt reports clinical improvement in her left foot swelling and erythema since admission. - There has not been any reported pus or fluid drainage since admission. - Cont. Vancomycin - Stop Zosyn as pt has had concerns for possible C. diff and was having diarrhea prior to admission. - Apply Bactroban 2% TID with dressing changes - Supportive care - Keep leg elevated COPD Hx of lung cancer - Pt is on Incruse Elipta and Albuterol Inh PRN at home. - She reports multiple sensitivities to other inhaled long acting bronchodilators and the Incruse Ellipta is the only one she has tolerated - She also reports allergic reactions to Duoneb and Budesonide nebulizers and gets tachycardic with the Albuterol nebs - Cont. Albuterol Inh PRN and add on Xopenex Q4H PRN - She is going to try to get her Incruse Ellipta from home. HTN - Cont. home dose of Metoprolol 50mg BID - Benazepril is not on formulary and pt with multiple sensitivities to other BP medications - She will try to get her Benazepril from home - Vasotec PRN - Pt unable to take clonidine due to sensitivities Iron deficiency anemia Hx of AVMs - Pts H/H are stable - Monitor labs Diarrhea - Pt has reported issues with diarrhea and vomiting intermittently for the last 4 months. - She was hospitalized in [place] for this in August and in review of the records it looks like she was treated for gastroenteritis. There was no confirmed C. diff at that time per the pt - She recently started having diarrhea and occasional vomiting about 5 days prior to admission. Pt had stool studies done yesterday prior to admission - No further diarrhea or vomiting since admission - Stool for C. diff should the diarrhea occur again Dysuria Possible UTI - Pt had reported some dysuria and frequency prior to admission - Urine culture is pending. The exam, history, and the medical decision-making described in the above note were completed with the assistance of the mid-level provider. I reviewed and agree with the findings presented. I attest that I had a [id number] encounter with the patient on the same day, and personally performed and documented my assessment and findings in the medical record. left dorsal foot blisters/cellulitis. improving. cont vanco and topical bactroban. dc zosyn. family to bring her inhaler and bp meds...she refuses our medications. replace kcl. (2) HTN (hypertension) Code(s): I10 - Essential (primary) hypertension Status: Acute (3) COPD (chronic obstructive pulmonary disease) Code(s): J44.9 - Chronic obstructive pulmonary disease, unspecified Status: Acute (4) Iron deficiency anemia Code(s): D50.9 - Iron deficiency anemia, unspecified Status: Acute (5) Diarrhea Code(s): R19.7 - Diarrhea, unspecified Status: Acute
--- NOTE | 2017-12-06 13:18 | ECG ---
Date Performed: 12/05/2017 Time Performed: 15:38:48 PTAGE: 82 years EKG: Sinus rhythm POSSIBLE LEFT ATRIAL ENLARGEMENT LOW QRS VOLTAGE IN PRECORDIAL LEADS POSSIBLE LEFT VENTRICULAR HYPER TROPHY NONSPECIFIC ST & T-WAVE ABNORMALITY ABNORMAL ECG PREVIOUS TRACING : 07/08/2017 08.50 DOCTOR: Eulogio Thomas Interpretating Date/Time 12/06/2017 13:12:56
[2017-12-06] MEDS: UMECLIDINIUM INH SCH (15:44)
[2017-12-06] MEDS: Vancomycin Inj 1,250 MG in Sodium Chlor 0.9% Inj 250 ML IV.SIG SCH (15:44)
[2017-12-06] MEDS: Enoxaparin Inj 30 MG/0.3 ML Syringe SQ SCH (17:05)
[2017-12-06 17:47] LABS: Calcium 8.6 mg/dL (8.5-10.1); Carbon Dioxide 37.5 meq/L (21.0-32.0); Potassium 3.3 meq/L (3.5-5.1)
[2017-12-06] MEDS: Sodium Chloride 0.9% 2 ML Flush BID IV.FLUSH SCH (21:42)
[2017-12-07] MEDS: Levothyroxine 112 MCG Tablet PO SCH (05:57)
[2017-12-07 06:54] LABS: Baso % (Auto) 0.4 % (0.0-2.0); Eos # (Auto) 0.2 th/mm3 (0.0-0.4); Eos % (Auto) 2.7 % (0.0-4.0); Hematocrit 40.8 % (35.0-46.0); Hemoglobin 13.7 gm/dL (11.6-15.3); Lymph # (Auto) 1.4 th/mm3 (1.0-4.8); Lymph % (Auto) 20.4 % (9.0-44.0); Mean Corpuscular HGB Conc 33.6 % (32.0-36.0); Mean Corpuscular Volume 89.3 fL (80.0-100.0); Mean Platelet Volume 9.1 fL (7.0-11.0); Mono # (Auto) 0.6 th/mm3 (0.0-0.9); Mono % (Auto) 8.3 % (0.0-8.0); Neut # (Auto) 4.8 th/mm3 (1.8-7.7); Neut % (Auto) 68.2 % (16.0-70.0); Platelet Count 209 th/mm3 (150-450); Red Blood Count 4.57 mil/mm3 (4.00-5.30); Red Cell Distribution Width 13.7 % (11.6-17.2); White Blood Count 7.1 th/mm3 (4.0-11.0)
[2017-12-07 07:11] LABS: Calcium 8.9 mg/dL (8.5-10.1); Carbon Dioxide 35.1 meq/L (21.0-32.0); Potassium 3.6 meq/L (3.5-5.1)
[2017-12-07] MEDS: Metoprolol Tartrate 50 MG Tablet PO SCH ×2 (09:35→20:57)
[2017-12-07] MEDS: Furosemide 40 MG Tablet PO SCH ×2 (09:35→17:27)
[2017-12-07] MEDS: Pantoprazole Sodium 20 MG DR Tablet PO SCH (09:36)
[2017-12-07] MEDS: UMECLIDINIUM INH SCH (09:36)
[2017-12-07] MEDS: Potassium Chloride 10 MEQ ER Capsule PO SCH ×2 (09:36→20:56)
[2017-12-07] MEDS: Lisinopril 20 MG Tablet PO SCH (09:37)
[2017-12-07] MEDS: Sodium Chloride 0.9% 2 ML Flush BID IV.FLUSH SCH ×2 (09:39→20:59)
--- NOTE | 2017-12-07 10:11 | P.PNIM ---
Subjective Interval history: Pt feeling well today She feels that the foot wound is continuing to improve Less swelling in the left foot and ankle Afebrile Physical Exam Vital signs: Vital Signs 12/06/17 12:00 12/06/17 13:08 12/06/17 16:00 Temperature 97.3 F L 97.5 F L Pulse Rate 50 L 57 L Respiratory Rate 20 20 Blood Pressure 168/74 H 167/72 H Pulse Oximetry 96 96 97 12/06/17 20:00 12/07/17 00:00 12/07/17 04:00 Temperature 97.5 F L 98 F 97.6 F Pulse Rate 60 47 L 60 Respiratory Rate 18 18 18 Blood Pressure 162/72 H 175/79 H 140/75 Pulse Oximetry 96 99 97 12/07/17 08:00 12/07/17 09:37 Temperature 97.5 F L Pulse Rate 61 Respiratory Rate 21 Blood Pressure 189/75 H Pulse Oximetry 98 96 Intake & Output 12/06/17 12/07/17 12/07/17 18:59 06:59 18:59 Intake Total 1083.5 / 1083.5 240 / 240 Balance 1083.5 / 1083.5 240 / 240 Weight 51.8 kg Intake: IV 262.5 / 262.5 Vancomycin Inj 1,250 MG In NS 262.5 / 262.5 Inj 250 ML @ 250 mls/hr IV.SIG Q24H REYNALDO Rx#:[id number] Oral 821 / 821 240 / 240 Other: # Voids 4 3 Date of Last Bowel Movement 12/06/17 Narrative: GENERAL: NAD, AAOx3 SKIN: Warm and dry. 2 small blisters/pustules on lateral aspect Left foot and 2 small pustule medial left foot with erythema and tenderness, less swelling and erythema today CARDIO: Regular RESP: Slight wheezing, worse on the left side ABD: +BS, soft, non-tender, nondistended. Ext:: Left foot/ankle edema continuing to improve Results - Labs CBC & Chem 7: 12/07/17 05:57 12/07/17 05:57 Laboratory Results - last 24 hr 12/05/17 12/06/17 12/07/17 15:30 16:54 05:57 WBC 7.1 RBC 4.57 Hgb 13.7 Hct 40.8 MCV 89.3 MCH 30.0 MCHC 33.6 RDW 13.7 Plt Count 209 MPV 9.1 Neut % (Auto) 68.2 Lymph % (Auto) 20.4 [place] % (Auto) 8.3 H Eos % (Auto) 2.7 Baso % (Auto) 0.4 Neut # (Auto) 4.8 Lymph # (Auto) 1.4 [place] # (Auto) 0.6 Eos # (Auto) 0.2 Baso # (Auto) 0.0 WBC Differential . Differential Comment Auto diff final Sodium 143 Potassium 3.3 L Chloride 102 Carbon Dioxide 37.5 H Anion Gap 4 L BUN 10 Creatinine 0.83 Estimated GFR 65 L Random Glucose 92 Calcium 8.6 Urine Color Yellow Urine Clarity Hazy H Urine pH 5.0 Ur Specific [place] 1.009 Urine Protein 30 H Urine Glucose (UA) Negative Urine Ketones Negative Urine Occult Blood Small H Urine Nitrate Negative Urine Bilirubin Negative Urine Urobilinogen Less than 2 Ur Leukocyte Esterase Small H Urine RBC 1 Urine WBC 51 H Urine WBC Clumps Few H Micro UA Comment Culture indicated Urine Culture Comments Culture indicated 12/07/17 05:57 WBC RBC Hgb Hct MCV MCH MCHC RDW Plt Count MPV Neut % (Auto) Lymph % (Auto) [place] % (Auto) Eos % (Auto) Baso % (Auto) Neut # (Auto) Lymph # (Auto) [place] # (Auto) Eos # (Auto) Baso # (Auto) WBC Differential Differential Comment Sodium 143 Potassium 3.6 Chloride 101 Carbon Dioxide 35.1 H Anion Gap 7 BUN 15 Creatinine 0.79 Estimated GFR 69 L Random Glucose 96 Calcium 8.9 Urine Color Urine Clarity Urine pH Ur Specific [place] Urine Protein Urine Glucose (UA) Urine Ketones Urine Occult Blood Urine Nitrate Urine Bilirubin Urine Urobilinogen Ur Leukocyte Esterase Urine RBC Urine WBC Urine WBC Clumps Micro UA Comment Urine Culture Comments Microbiology 12/05/17 15:30 Clean Catch Urine Urine Culture - Preliminary gram negative rods 12/05/17 14:40 Blood - Peripheral Aerobic Blood Culture - Preliminary No growth in 1 day 12/05/17 14:40 Blood - Peripheral Anaerobic Blood Culture - Preliminary No growth in 1 day 12/05/17 14:35 Blood - Peripheral Aerobic Blood Culture - Preliminary No growth in 1 day 12/05/17 14:35 Blood - Peripheral Anaerobic Blood Culture - Preliminary No growth in 1 day - Imaging Chest X-Ray 12/05/17 13:54 CONCLUSION: 1. Cardiomegaly. 2. No focal infiltrate or pulmonary vascular congestion. 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 Pt reports that 2 weeks ago she had some skin cancer frozen on her left foot. Then around 1 week ago she started having some redness and swelling and then a large blister appeared on the top pf her foot. She was seen by her plastic surgeon this past week and pt reports that he lanced the blister and pus and fluid came out. She has been applying Bactroban topically to the foot but it was not getting any better. He saw her in followed up yesterday and then sent her to the ED for IV antibiotics and admission to the hospital. - Pt was started on IV Vancomycin and Zosyn in the ED and these were continued at admission. - Pt reports clinical improvement in her left foot swelling and erythema since admission. - There has not been any reported pus or fluid drainage since admission. - Cont. Vancomycin - Stop Zosyn as pt has had concerns for possible C. diff and was having diarrhea prior to admission. - Apply Bactroban 2% TID with dressing changes - Supportive care - Keep leg elevated COPD Hx of lung cancer - Pt is on Incruse Elipta and Albuterol Inh PRN at home. - She reports multiple sensitivities to other inhaled long acting bronchodilators and the Incruse Ellipta is the only one she has tolerated - She also reports allergic reactions to Duoneb and Budesonide nebulizers and gets tachycardic with the Albuterol nebs - Cont. Albuterol Inh PRN and add on Xopenex Q4H PRN - Her Incruse Ellipta resumed on 12/06. HTN - Cont. home dose of Metoprolol 50mg BID - Benazepril brought from home and is to be resumed today - Vasotec PRN - Pt unable to take clonidine due to sensitivities Iron deficiency anemia Hx of AVMs - Pts H/H are stable - Monitor labs Diarrhea - Pt has reported issues with diarrhea and vomiting intermittently for the last 4 months. - She was hospitalized in [place] for this in August and in review of the records it looks like she was treated for gastroenteritis. There was no confirmed C. diff at that time per the pt - She recently started having diarrhea and occasional vomiting about 5 days prior to admission. Pt had stool studies done yesterday prior to admission - No further diarrhea or vomiting since admission - Stool for C. diff should the diarrhea occur again Dysuria Possible UTI - Pt had reported some dysuria and frequency prior to admission - Urine culture growing E. Coli - Start Cipro 500mg po BID. The exam, history, and the medical decision-making described in the above note were completed with the assistance of the mid-level provider. I reviewed and agree with the findings presented. I attest that I had a [id number] encounter with the patient on the same day, and personally performed and documented my assessment and findings in the medical record. left foot wound/cellulitis better. cont vanco and topical bactroban and dressing. uti. ecoli . cipro added home bp meds ordered. probably home tomorrow. (2) HTN (hypertension) Code(s): I10 - Essential (primary) hypertension Status: Acute (3) COPD (chronic obstructive pulmonary disease) Code(s): J44.9 - Chronic obstructive pulmonary disease, unspecified Status: Acute (4) Iron deficiency anemia Code(s): D50.9 - Iron deficiency anemia, unspecified Status: Acute (5) Diarrhea Code(s): R19.7 - Diarrhea, unspecified Status: Acute
[2017-12-07] MEDS: Butalbital/APAP/Caff 50/325/40 MG Tablet PO PRN (11:23)
[2017-12-07] MEDS ORDERED: [UNRECOGNIZED DRUG - OTHER] PO SCH (12:00)
[2017-12-07] MEDS ORDERED: BENAZEPRIL PO SCH (12:00)
[2017-12-07] MEDS: Ciprofloxacin 500 MG Tablet PO SCH ×2 (12:44→20:57)
[2017-12-07] MEDS: BENAZEPRIL PO SCH ×2 (12:44→20:57)
[2017-12-07] MEDS: [UNRECOGNIZED DRUG - OTHER] PO SCH ×2 (12:44→20:57)
[2017-12-07] MEDS: Vancomycin Inj 1,250 MG in Sodium Chlor 0.9% Inj 250 ML IV.SIG SCH (17:27)
[2017-12-07] MEDS: Enoxaparin Inj 30 MG/0.3 ML Syringe SQ SCH (17:27)
[2017-12-07] MEDS: Docusate Sodium 100 MG Capsule PO PRN (21:11)
[2017-12-08] MEDS: Levothyroxine 112 MCG Tablet PO SCH (05:50)
[2017-12-08 08:23] LABS: Baso % (Auto) 0.4 % (0.0-2.0); Eos # (Auto) 0.2 th/mm3 (0.0-0.4); Eos % (Auto) 2.8 % (0.0-4.0); Hematocrit 41.8 % (35.0-46.0); Lymph # (Auto) 1.4 th/mm3 (1.0-4.8); Lymph % (Auto) 19.6 % (9.0-44.0); Mean Corpuscular HGB Conc 33.4 % (32.0-36.0); Mean Corpuscular Hemoglobin 30.2 pg (27.0-34.0); Mean Corpuscular Volume 90.5 fL (80.0-100.0); Mono # (Auto) 0.5 th/mm3 (0.0-0.9); Mono % (Auto) 6.5 % (0.0-8.0); Neut # (Auto) 4.9 th/mm3 (1.8-7.7); Neut % (Auto) 70.7 % (16.0-70.0); Platelet Count 202 th/mm3 (150-450); Red Blood Count 4.62 mil/mm3 (4.00-5.30); Red Cell Distribution Width 13.6 % (11.6-17.2)
[2017-12-08 08:49] LABS: Calcium 8.8 mg/dL (8.5-10.1); Carbon Dioxide 35.7 meq/L (21.0-32.0); Potassium 3.9 meq/L (3.5-5.1)
[2017-12-08] MEDS: BENAZEPRIL PO SCH ×2 (09:41→20:57)
[2017-12-08] MEDS: [UNRECOGNIZED DRUG - OTHER] PO SCH ×2 (09:41→20:57)
[2017-12-08] MEDS: Ciprofloxacin 500 MG Tablet PO SCH ×2 (09:41→20:56)
[2017-12-08] MEDS: Metoprolol Tartrate 50 MG Tablet PO SCH ×2 (09:41→20:56)
[2017-12-08] MEDS: Potassium Chloride 10 MEQ ER Capsule PO SCH ×2 (09:41→20:56)
[2017-12-08] MEDS: Pantoprazole Sodium 20 MG DR Tablet PO SCH (09:41)
[2017-12-08] MEDS: UMECLIDINIUM INH SCH (09:44)
[2017-12-08] MEDS: Furosemide 40 MG Tablet PO SCH ×2 (09:48→17:12)
[2017-12-08] MEDS: Sodium Chloride 0.9% 2 ML Flush BID IV.FLUSH SCH ×2 (09:49→20:56)
--- NOTE | 2017-12-08 10:15 | P.PNIM ---
Subjective Interval history: Pt reports that her dysuria is improving with the Cipro She states that her left foot wound was draining quite a bit last night Denies any increased pain but was having some cramping last night in the left leg. Physical Exam Vital signs: Vital Signs 12/07/17 12:00 12/07/17 16:00 12/07/17 20:00 Temperature 97.4 F L 97.8 F 97.7 F Pulse Rate 74 66 83 Respiratory Rate 20 20 20 Blood Pressure 141/66 H 135/67 187/78 H Pulse Oximetry 96 94 L 12/07/17 20:05 12/08/17 00:00 12/08/17 04:00 Temperature 98.2 F 97.7 F Pulse Rate 61 70 58 L Respiratory Rate 20 20 Blood Pressure 149/69 H 128/66 Pulse Oximetry 98 97 12/08/17 04:03 12/08/17 08:00 Temperature 97.8 F Pulse Rate 56 L 63 Respiratory Rate 20 Blood Pressure 175/72 H Pulse Oximetry 98 Intake & Output 12/07/17 12/08/17 12/08/17 18:59 06:59 18:59 Intake Total 480 / 480 262.5 / 262.5 Output Total 200 / 200 Balance 280 / 280 262.5 / 262.5 Intake: IV 262.5 / 262.5 Vancomycin Inj 1,250 MG In NS 262.5 / 262.5 Inj 250 ML @ 250 mls/hr IV.SIG Q24H REYNALDO Rx#:[id number] Oral 480 / 480 Output: Urine 200 / 200 Other: # Voids 5 Date of Last Bowel Movement 12/05/17 Narrative: GENERAL: NAD, AAOx3 SKIN: Warm and dry. 2 small blisters/pustules on lateral aspect Left foot and 2 small pustule medial left foot, less swelling,tenderness and erythema CARDIO: Regular RESP: CTA bilaterally ABD: +BS, soft, non-tender, nondistended. Ext:: No edema Results - Labs CBC & Chem 7: 12/08/17 07:05 12/09/17 06:21 Laboratory Results - last 24 hr 12/08/17 12/08/17 07:05 07:05 WBC 7.0 RBC 4.62 Hgb 14.0 Hct 41.8 MCV 90.5 MCH 30.2 MCHC 33.4 RDW 13.6 Plt Count 202 MPV 9.0 Neut % (Auto) 70.7 H Lymph % (Auto) 19.6 [place] % (Auto) 6.5 Eos % (Auto) 2.8 Baso % (Auto) 0.4 Neut # (Auto) 4.9 Lymph # (Auto) 1.4 [place] # (Auto) 0.5 Eos # (Auto) 0.2 Baso # (Auto) 0.0 WBC Differential . Differential Comment Auto diff final Sodium 144 Potassium 3.9 Chloride 100 Carbon Dioxide 35.7 H Anion Gap 8 BUN 20 H Creatinine 0.87 Estimated GFR 62 L Random Glucose 99 Calcium 8.8 Microbiology 12/05/17 14:40 Blood - Peripheral Aerobic Blood Culture - Preliminary No growth in 2 days 12/05/17 14:40 Blood - Peripheral Anaerobic Blood Culture - Preliminary No growth in 2 days 12/05/17 14:35 Blood - Peripheral Aerobic Blood Culture - Preliminary No growth in 2 days 12/05/17 14:35 Blood - Peripheral Anaerobic Blood Culture - Preliminary No growth in 2 days 12/05/17 15:30 Clean Catch Urine Urine Culture - Final Escherichia coli - Imaging Chest X-Ray 12/05/17 13:54 CONCLUSION: 1. Cardiomegaly. 2. No focal infiltrate or pulmonary vascular congestion. Assessment and Plan - Assessment (1) Cellulitis Code(s): L03.90 - Cellulitis, unspecified Status: Acute Plan: Cellulitis, left foot - Pt is an 82 y/o female with severe COPD on 2-3L of supplemental O2 chronically , HTN, Hypothyroidism, hx of lung cancer s/p RUL lobectomy in 2010, and CAD - Pt presented to the ED at [facility] on 12/05/17 for evaluation of left foot redness, swelling and pain. Pt reports that 2 weeks ago she had some skin cancer frozen on her left foot. Then around 1 week ago she started having some redness and swelling and then a large blister appeared on the top pf her foot. She was seen by her plastic surgeon this past week and pt reports that he lanced the blister and pus and fluid came out. She has been applying Bactroban topically to the foot but it was not getting any better. He saw her in followed up yesterday and then sent her to the ED for IV antibiotics and admission to the hospital. - Pt was started on IV Vancomycin and Zosyn in the ED and these were continued at admission. - Pt reports clinical improvement in her left foot swelling and erythema since admission. - There has not been any reported pus or fluid drainage since admission. - Cont. Vancomycin - Zosyn stopped on 12/06 as pt has had concerns for possible C. diff and was having diarrhea prior to admission. - Cont Bactroban 2% TID with dressing changes - Supportive care - Keep leg elevated COPD Hx of lung cancer - Pt is on Incruse Elipta and Albuterol Inh PRN at home. - She reports multiple sensitivities to other inhaled long acting bronchodilators and the Incruse Ellipta is the only one she has tolerated - She also reports allergic reactions to Duoneb and Budesonide nebulizers and gets tachycardic with the Albuterol nebs - Cont. Albuterol Inh PRN and add on Xopenex Q4H PRN - Her Incruse Ellipta resumed on 12/06. HTN - Cont. home dose of Metoprolol 50mg BID - Benazepril 20mg BID resumed on 12/07 - Vasotec PRN - Pt unable to take clonidine due to sensitivities Iron deficiency anemia Hx of AVMs - Pts H/H are stable - Monitor labs Diarrhea - Pt has reported issues with diarrhea and vomiting intermittently for the last 4 months. - She was hospitalized in [place] for this in August and in review of the records it looks like she was treated for gastroenteritis. There was no confirmed C. diff at that time per the pt - She recently started having diarrhea and occasional vomiting about 5 days prior to admission. Pt had stool studies done yesterday prior to admission - No further diarrhea or vomiting since admission - Stool for C. diff should the diarrhea occur again Dysuria Possible UTI - Pt had reported some dysuria and frequency prior to admission - Urine culture growing E. Coli - Cipro 500mg po BID started on 12/07 (2) HTN (hypertension) Code(s): I10 - Essential (primary) hypertension Status: Acute (3) COPD (chronic obstructive pulmonary disease) Code(s): J44.9 - Chronic obstructive pulmonary disease, unspecified Status: Acute (4) Iron deficiency anemia Code(s): D50.9 - Iron deficiency anemia, unspecified Status: Acute (5) Diarrhea Code(s): R19.7 - Diarrhea, unspecified Status: Acute - Attending Attestation Patient examined. Assessment and plan formulated with Francisca Pereira PA-C. I agree with the above.
[2017-12-08] MEDS: Butalbital/APAP/Caff 50/325/40 MG Tablet PO PRN (11:39)
--- NOTE | 2017-12-08 13:32 | P.PNWCN ---
Wound Care Nurse Consult Description: Wound consult ordered by for wound management. Communicated with: Alexa JEAN, Recommendation: 1. Cleanse left dorsal foot with warm soap and water rinse pat dry 2. Apply thin even layer of Bactroban TID as ordered cover per patient request. 3. Follow up with out patient wound center/ home health care if needed. Additional information: Patient was seen today by real estate underwriter for wound management of left foot .Patient alert and oriented sitting up in chair with lower extremities elevated in no acute distress.Patient states left foot feeling alot better.Left foot open to air real estate underwriter was able to visualize diffuse pustules intact and unroofed.mild erythema noted to dorsal left foot .no odor or drainage noted positive pedal pulse with <3 sec cap refill.Patient has current orders for Bactroban oint TID. Ground Support Equipment Fitter agrees with current orders.Patient request foot to remain open to air for to see.
[2017-12-08] MEDS ORDERED: Pharmacy Ordered Lab Info OTHER ONE (15:45)
[2017-12-08] MEDS: Vancomycin Inj 1,250 MG in Sodium Chlor 0.9% Inj 250 ML IV.SIG SCH (16:27)
[2017-12-08] MEDS: Enoxaparin Inj 30 MG/0.3 ML Syringe SQ SCH (17:12)
[2017-12-08] MEDS: Docusate Sodium 100 MG Capsule PO PRN (21:01)
[2017-12-09] MEDS: Levothyroxine 112 MCG Tablet PO SCH (05:56)
[2017-12-09 07:46] LABS: Calcium 9.4 mg/dL (8.5-10.1); Carbon Dioxide 36.2 meq/L (21.0-32.0); Potassium 3.9 meq/L (3.5-5.1)
[2017-12-09] MEDS: BENAZEPRIL PO SCH (08:55)
[2017-12-09] MEDS: [UNRECOGNIZED DRUG - OTHER] PO SCH (08:55)
[2017-12-09] MEDS: UMECLIDINIUM INH SCH (08:55)
[2017-12-09] MEDS: Ciprofloxacin 500 MG Tablet PO SCH (08:58)
[2017-12-09] MEDS: Sodium Chloride 0.9% 2 ML Flush BID IV.FLUSH SCH (08:59)
[2017-12-09] MEDS: Metoprolol Tartrate 50 MG Tablet PO SCH (08:59)
[2017-12-09] MEDS: Potassium Chloride 10 MEQ ER Capsule PO SCH (08:59)
[2017-12-09] MEDS: Pantoprazole Sodium 20 MG DR Tablet PO SCH (08:59)
[2017-12-09] MEDS: Furosemide 40 MG Tablet PO SCH (09:05)
[2017-12-09] MEDS ORDERED: levoFLOXacin Liq 25 MG/ML 100 ML Bottle PO SCH (10:00)
[2017-12-09 12:20] VITALS: O2SAT 95
[2017-12-09 16:04] VITALS: BP 134/63; PULSE 71; RESP 18; TEMP 97.7
--- NOTE | 2017-12-09 16:14 | P.DS ---
Date of admission: 12/05/17 17:43 Primary care physician: UNKNOWN Attending physician on discharge: Mark West Anticipated date of discharge: 12/09/17 Brief History from admission: HPI narrative: Patient 82-year-old female with a ? of history of C. difficile, COPD presents emergency department for evaluation of left foot redness swelling and pain. Symptoms been present for since about Friday, patient had a biopsy last week with her plastic surgeon last week and then he noticed that the blister had arisen on her foot on Friday, was popped using purulent material, she has not been on antibiotics. He sent her here for IV antibiotics admission to the hospital. Patient states the symptoms are gradually worsening, over the past week, associated signs symptoms context as above. Patient foot consistent with cellulitis cannot r/o abscess and will start on zosyn and vancomycin and get wound care evaluation. Related Data DS: Medications - Discharge Medications Prescriptions: levofloxacin [Levaquin] 500 mg PO DAILY #4 tab potassium chloride 10 meq PO BID 30 Days #60 cap DS: Summary Hospital Course: (1) Cellulitis Code(s): L03.90 - Cellulitis, unspecified Status: Acute Plan: Cellulitis, left foot - Pt is an 82 y/o female with severe COPD on 2-3L of supplemental O2 chronically , HTN, Hypothyroidism, hx of lung cancer s/p RUL lobectomy in 2010, and CAD - Pt presented to the ED at [facility] on 12/05/17 for evaluation of left foot redness, swelling and pain. Pt reports that 2 weeks ago she had some skin cancer frozen on her left foot. Then around 1 week ago she started having some redness and swelling and then a large blister appeared on the top pf her foot. She was seen by her plastic surgeon this past week and pt reports that he lanced the blister and pus and fluid came out. She has been applying Bactroban topically to the foot but it was not getting any better. He saw her in followed up yesterday and then sent her to the ED for IV antibiotics and admission to the hospital. - Pt was started on IV Vancomycin and Zosyn in the ED and these were continued at admission. - Pt reports clinical improvement in her left foot swelling and erythema since admission. - There has not been any reported pus or fluid drainage since admission. - Vancomycin (12/05 - 07/08) - Zosyn 12/05 - Zosyn stopped on 12/06 as pt has had concerns for possible C. diff and was having diarrhea prior to admission. - Cont Bactroban 2% TID with dressing changes - Abx changed to PO levaquin 12/09. Continue PO levaquin x 4d - discharge to home with [facility]. See discharge orders - f/u with Spa Receptionist, in 1 week COPD Hx of lung cancer - Pt is on Incruse Elipta and Albuterol Inh PRN at home. - She reports multiple sensitivities to other inhaled long acting bronchodilators and the Incruse Ellipta is the only one she has tolerated - She also reports allergic reactions to Duoneb and Budesonide nebulizers and gets tachycardic with the Albuterol nebs - Cont. Albuterol Inh PRN and add on Xopenex Q4H PRN - Her Incruse Ellipta resumed on 12/06. HTN - Cont. home dose of Metoprolol 50mg BID - Benazepril 20mg BID resumed on 12/07 - Vasotec PRN - Pt unable to take clonidine due to sensitivities Iron deficiency anemia Hx of AVMs - Pts H/H are stable - Monitor labs Diarrhea - Pt has reported issues with diarrhea and vomiting intermittently for the last 4 months. - She was hospitalized in [place] for this in August and in review of the records it looks like she was treated for gastroenteritis. There was no confirmed C. diff at that time per the pt - She recently started having diarrhea and occasional vomiting about 5 days prior to admission. Pt had stool studies done yesterday prior to admission - No further diarrhea or vomiting since admission - Stool for C. diff should the diarrhea occur again Dysuria Possible UTI - Pt had reported some dysuria and frequency prior to admission - Urine culture growing E. Coli - Cipro 500mg po BID started on 12/07 changed to daily levaquin - Time Spent with Patient Total time spent providing and/or coordinating discharge services: Greater than 30 minutes - Quality: VTE Deep Vein Thrombosis/Pulmonary Embolism Present on Admission: No Exam Vital signs: Vital Signs 12/08/17 20:00 12/09/17 00:00 12/09/17 04:00 Temperature 97.6 F 97.6 F 97.9 F Pulse Rate 71 71 59 L Respiratory Rate 18 18 18 Blood Pressure 151/69 H 163/63 H 129/63 Pulse Oximetry 97 97 98 12/09/17 08:00 12/09/17 09:58 12/09/17 12:00 Temperature 97.4 F L 98.0 F Pulse Rate 55 L 64 Respiratory Rate 16 17 Blood Pressure 126/86 150/65 H Pulse Oximetry 94 L 96 95 12/09/17 16:00 Temperature 97.7 F Pulse Rate 71 Respiratory Rate 18 Blood Pressure 134/63 Pulse Oximetry 95 Intake & Output 12/08/17 12/09/17 12/09/17 18:59 06:59 18:59 Intake Total 262.5 / 262.5 Balance 262.5 / 262.5 Weight 75.4 kg Intake: IV 262.5 / 262.5 Vancomycin Inj 1,250 MG In NS 262.5 / 262.5 Inj 250 ML @ 250 mls/hr IV.SIG Q24H REYNALDO Rx#:[id number] Other: # Voids 8 3 Date of Last Bowel Movement 12/08/17 12/08/17 12/08/17 # Bowel Movements 1 Results Procedures completed during hospitalization: n/a Labs on day of discharge: Labs from last 24 hours 12/09/17 12/08/17 06:21 16:15 Sodium 141 Potassium 3.9 Chloride 98 Carbon Dioxide 36.2 H Anion Gap 7 BUN 24 H Creatinine 0.94 Estimated GFR 57 L Random Glucose 97 Calcium 9.4 Vancomycin Trough 13.9 H Preliminary micro results at discharge 12/05/17 14:40 Aerobic Blood Culture - Preliminary Blood - Peripheral No growth in 4 days Anaerobic Blood Culture - Preliminary No growth in 4 days 12/05/17 14:35 Aerobic Blood Culture - Preliminary Blood - Peripheral No growth in 4 days Anaerobic Blood Culture - Preliminary No growth in 4 days - Impressions ITS Impressions Chest X-Ray 12/05/17 13:54 CONCLUSION: 1. Cardiomegaly. 2. No focal infiltrate or pulmonary vascular congestion. Discharge Plan - Discharge Disposition Patient Disposition: W/Home Health Service - Discharge Condition Condition: Stable - Discharge Order Discharge Orders: Discharge Order (Routine); Ordered 12/09/17 Ordered By: Mark West - Discharge Details Anticipated Discharge Date: 12/08/17 Discharge Comment: Pt has followup with her PCP, Dr. Mendez, scheduled on 12/10/17 - Physicians Team Primary Care Provider: UNKNOWN, Attending Provider: Danny Ruiz Other Providers: Jennifer John MD ; [facility]
--- NOTE | 2017-12-09 16:16 | P.DCO ---
- Home Health Nursing Order: Medical education, Signs/symptoms of disease process, Medication education-adverse effect, Wound care and dressing changes, Nursing assessment with vital signs - Case Management Consult No - Certification I have seen patient Sylvia Momin on 12/09/17. My clinical findings support the need for the requested home health care services because: Limited mobility due to disease progression, Deconditioned with increased weakness, Medication compliance is questionable, Limited ability to care for self I certify that my clinical findings support that this patient is homebound because: Impaired cognitive ability/safety, Unsafe to leave home unassisted, Need for psychosocial assistance
[2017-12-10] MEDS ORDERED: levoFLOXacin Liq 25 MG/ML 100 ML Bottle PO SCH (09:00)
[2017-12-10] MEDS ORDERED: Pharmacy Ordered Lab Info OTHER ONE (16:00)
== END 2017-12-09 18:12 | disposition home health service (06) ==
LOC: NEPD 12:54 → NEDA 17:43 → N05 18:53
PROVIDERS: ADMIT Hospitalist; ATTEND Hospitalist